=== PATIENT | female | born 1965 | race Caucasian/White ===

== ENCOUNTER 2017-06-09 11:15 | Emergency (ER) | payer SELFPAY ==
[2017-06-09 11:46] LABS: ADD MAN DIFF? NO
[2017-06-09 11:51] LABS: BASO # 0.1 x10^3/uL (0.0-0.2); BASO % 1 % (0-3); EOS # 0.2 x10^3/uL (0.0-0.7); EOS % 2 % (0-3); HEMATOCRIT 46.6 % (36.0-47.0); HEMOGLOBIN 15.3 g/dL (12.0-15.5); LYMPH # 2.5 x10^3/uL (1.0-4.8); LYMPH % 25 % (24-48); MEAN CORPUSCULAR HEMOGLOBIN 29 pg (25-35); MEAN CORPUSCULAR HGB CONC 33 g/dL (31-37); MEAN CORPUSCULAR VOLUME 87 fL (79-100); MONO # 0.8 x10^3/uL (0.0-1.1); MONO % 8 % (0-9); NEUT # 6.2 x10^3uL (1.8-7.7); NEUT % 64 % (31-73); PLATELET COUNT 286 x10^3/uL (140-400); RED BLOOD COUNT 5.36 x10^6/uL (3.50-5.40); RED CELL DISTRIBUTION WIDTH 14.4 % (11.5-14.5); WHITE BLOOD COUNT 9.7 x10^3/uL (4.0-11.0)
[2017-06-09] MEDS: IV NORMAL SALINE 1000ML BAG 1,000 ML IV (11:51)
[2017-06-09] MEDS: METOCLOPRAMIDE HCL 10 MG/2 ML VIAL. IV (11:52)
[2017-06-09] MEDS: DEXAMETHASONE SOD PHOS 4 MG/ML VIAL IV (11:54)
[2017-06-09] MEDS: diphenhydrAMINE 50 MG/ML VIAL IVP (11:54)
[2017-06-09] MEDS: MORPHINE SULFATE 4 MG/ML DISP.SYRIN. IV (11:57)
[2017-06-09 11:59] LABS: ANION GAP 10 (6-14); BLOOD UREA NITROGEN 15 mg/dL (7-20); BUN/CREATININE RATIO 19 (6-20); CALCIUM 9.2 mg/dL (8.5-10.1); CARBON DIOXIDE 27 mmol/L (21-32); CHLORIDE 103 mmol/L (98-107); CREATININE 0.8 mg/dL (0.6-1.0); GFR 75.3; GLUCOSE 143 mg/dL (70-99); POTASSIUM 4.1 mmol/L (3.5-5.1); SODIUM 140 mmol/L (136-145)
[2017-06-09 12:03] LABS: ALBUMIN 3.7 g/dL (3.4-5.0); ALBUMIN/GLOBULIN RATIO 0.9 (1.0-1.7); ALK PHOS 112 U/L (46-116); ALT (SGPT) 33 U/L (14-59); AST (SGOT) 16 U/L (15-37); TOTAL BILIRUBIN 0.2 mg/dL (0.2-1.0); TOTAL PROTEIN 7.7 g/dL (6.4-8.2)
[2017-06-09 13:26] LABS: BILIRUBIN,URINE NEGATIVE (NEG); CLARITY,URINE CLEAR; COLOR,URINE YELLOW; GLUCOSE,URINE NEGATIVE (NEG); NITRITE,URINE NEGATIVE (NEG); PH,URINE 5.5; PROTEIN,URINE NEGATIVE (NEG-TRACE); UROBILINOGEN,URINE 0.2 mg/dL (0.2 mg/dL)
[2017-06-09 13:34] LABS: BACTERIA,URINE FEW /HPF (0-FEW); RBC,URINE 0 /HPF (0-2); SQUAMOUS EPITHELIAL CELL,UR MOD /LPF
== END 2017-06-09 14:22 | disposition home or self-care (01) ==
LOC: ER 11:15
DX: G43.909 Migraine, unspecified, not intractable, without status migrainosus (principal); Z88.0 Allergy status to penicillin
CPT/HCPCS: 36415; 80053; 81001; 85025; 96361; 96374; 96375; 99285-25; J1100; J1200; J2270; J2765; J7030

== ENCOUNTER 2019-08-06 13:12 | Inpatient (IN) | payer MEDICAID ==
[~2019-08-06] VITALS: Ht 167.6 cm; Wt 122.0 kg
[~2019-08-06 13:12] MED LIST: BUTA1CAP57 PO
[2019-08-06] MEDS ORDERED: ONDANSETRON PF 4 MG/2 ML VIAL. IVP ONE (13:45)
[2019-08-06] MEDS ORDERED: IV NORMAL SALINE 1000ML BAG 1,000 ML IV ONE (13:45)
[2019-08-06] MEDS ORDERED: MORPHINE SULFATE 4 MG/ML VIAL. IV ONE (13:45)
[2019-08-06 14:05] LABS: BASO # 0.1 x10^3/uL (0.0-0.2); BASO % 1 % (0-3); EOS # 0.1 x10^3/uL (0.0-0.7); EOS % 1 % (0-3); HEMATOCRIT 45.6 % (36.0-47.0); HEMOGLOBIN 15.5 g/dL (12.0-15.5); LYMPH % 15 % (24-48); MEAN CORPUSCULAR HEMOGLOBIN 28 pg (25-35); MEAN CORPUSCULAR HGB CONC 34 g/dL (31-37); MEAN CORPUSCULAR VOLUME 81 fL (79-100); MONO # 1.2 x10^3/uL (0.0-1.1); MONO % 9 % (0-9); NEUT # 9.9 x10^3/uL (1.8-7.7); NEUT % 74 % (31-73); PLATELET COUNT 332 x10^3/uL (140-400); RED CELL DISTRIBUTION WIDTH 15.1 % (11.5-14.5); WHITE BLOOD COUNT 13.4 x10^3/uL (4.0-11.0)
[2019-08-06 14:16] LABS: CALCIUM 9.3 mg/dL (8.5-10.1); CREATININE 0.9 mg/dL (0.6-1.0); GFR 65.2; POTASSIUM 4.2 mmol/L (3.5-5.1)
[2019-08-06 14:21] LABS: ALBUMIN 3.4 g/dL (3.4-5.0); ALBUMIN/GLOBULIN RATIO 0.7 (1.0-1.7); TOTAL BILIRUBIN 0.3 mg/dL (0.2-1.0)
--- NOTE | 2019-08-06 14:47 | RAD ---
ABDOMEN LTD History: Reason: RUQ pain / Spl. Instructions: / History: Comparison: None. Technique: Transabdominal ultrasound images are obtained of the right upper quadrant. Findings: Visualized pancreas is unremarkable. Liver is increased in echogenicity. Right hepatic lobe measures 15.2 cm. Portal flow is hepatopedal. Cholelithiasis. Positive sonographic Zhong sign. No gallbladder wall thickening or pericholecystic fluid. Common bile duct measures 4 mm in diameter. The right kidney measures 10.2 x 6.3 x 4.8 cm. No hydronephrosis. Visualized portions of the aorta and IVC have normal caliber. IMPRESSION: 1. Cholelithiasis with positive sonographic Zhong sign. HIDA scan can further evaluate for gallbladder function. 2. Increased hepatic echotexture, may indicate steatosis. Electronically signed by: Helder Friend DO (08/06/2019 2:44 PM) [id number]
--- NOTE | 2019-08-06 14:55 | PHYS DOC ---
Past Medical History Past Medical History: Hypertension, Migraines Past Surgical History: Appendectomy, , Tonsillectomy Smoking Status: Current Every Day Smoker Alcohol Use: None Drug Use: None General Adult EDM: Chief Complaint: ABDOMINAL PAIN HPI: HPI: Patient is a 54 year old female presenting to the ED with a chief complaint of right upper quadrant tenderness. Patient states that she vomited this morning when she tried to eat a discrete sandwich. Patient states that the pain is been on and off for the last 4 days. Patient states that she does not have an appetite and is nauseated whenever she tries to eat anything. Patient states that the pain caused her to sweat this morning. Patient describes the pain as aching and is worse with eating food. Review of Systems: Review of Systems: Constitutional: Denies fever or chills. [] Eyes: Denies change in visual acuity. [] HENT: Denies nasal congestion or sore throat. [] Respiratory: Denies cough or shortness of breath. [] Cardiovascular: Denies chest pain or edema. [] GI: Complains of right upper quadrant tenderness with nausea and vomiting. : Denies dysuria. [] Neurologic: Denies headache, focal weakness or sensory changes. [] Heart Score: Risk Factors: Risk Factors: DM, Current or recent (<one month) smoker, HTN, HLP, family history of CAD, obesity. Risk Scores: Score 0 - 3: 2.5% MACE over next 6 weeks - Discharge Home Score 4 - 6: 20.3% MACE over next 6 weeks - Admit for Clinical Observation Score 7 - 10: 72.7% MACE over next 6 weeks - Early Invasive Strategies Current Medications: Current Medications Medications (Trade) Dose Ordered Sig/[facility] Start Time Stop Time Status Last Admin Dose Admin Morphine Sulfate (Morphine Sulfate) 4 mg 1X ONCE 08/06/19 13:45 08/06/19 13:46 DC 08/06/19 14:20 4 MG Ondansetron HCl (Zofran) 4 mg 1X ONCE 08/06/19 13:45 08/06/19 13:46 DC 08/06/19 14:19 4 MG Sodium Chloride 1,000 ml @ 1,000 mls/hr 1X ONCE 08/06/19 13:45 08/06/19 14:44 DC 08/06/19 14:20 1,000 MLS/HR Allergies: Allergies: Allergies Coded Allergies Type Severity Reaction Last Updated Verified Penicillins Allergy Intermediate 06/09/17 Yes Physical Exam: PE: Constitutional: Well developed, well nourished, patient has diaphoresis HENT: Normocephalic, atraumatic Eyes: EOMI Neck: Normal range of motion, Supple Cardiovascular:Heart rate regular rhythm Lungs & Thorax: Bilateral breath sounds clear to auscultation [] Abdomen: Right upper quadrant tenderness with positive Zhong sign Extremities: No tenderness, ROM intact Neurologic: Alert and oriented X 3 Current Patient Data: Labs: Laboratory Tests Test 08/06/19 14:00 White Blood Count 13.4 x10^3/uL (4.0-11.0) H Red Blood Count 5.60 x10^6/uL (3.50-5.40) H Hemoglobin 15.5 g/dL (12.0-15.5) Hematocrit 45.6 % (36.0-47.0) Mean Corpuscular Volume 81 fL (79-100) Mean Corpuscular Hemoglobin 28 pg (25-35) Mean Corpuscular Hemoglobin Concent 34 g/dL (31-37) Red Cell Distribution Width 15.1 % (11.5-14.5) H Platelet Count 332 x10^3/uL (140-400) Neutrophils (%) (Auto) 74 % (31-73) H Lymphocytes (%) (Auto) 15 % (24-48) L Monocytes (%) (Auto) 9 % (0-9) Eosinophils (%) (Auto) 1 % (0-3) Basophils (%) (Auto) 1 % (0-3) Neutrophils # (Auto) 9.9 x10^3/uL (1.8-7.7) H Lymphocytes # (Auto) 2.0 x10^3/uL (1.0-4.8) Monocytes # (Auto) 1.2 x10^3/uL (0.0-1.1) H Eosinophils # (Auto) 0.1 x10^3/uL (0.0-0.7) Basophils # (Auto) 0.1 x10^3/uL (0.0-0.2) Sodium Level 139 mmol/L (136-145) Potassium Level 4.2 mmol/L (3.5-5.1) Chloride Level 101 mmol/L (98-107) Carbon Dioxide Level 27 mmol/L (21-32) Anion Gap 11 (6-14) Blood Urea Nitrogen 10 mg/dL (7-20) Creatinine 0.9 mg/dL (0.6-1.0) Estimated GFR (Cockcroft-Gault) 65.2 BUN/Creatinine Ratio 11 (6-20) Glucose Level 125 mg/dL (70-99) H Calcium Level 9.3 mg/dL (8.5-10.1) Total Bilirubin 0.3 mg/dL (0.2-1.0) Aspartate Amino Transferase (AST) 33 U/L (15-37) Alanine Aminotransferase (ALT) 61 U/L (14-59) H Alkaline Phosphatase 102 U/L (46-116) Troponin I Quantitative < 0.017 ng/mL (0.000-0.055) Total Protein 8.0 g/dL (6.4-8.2) Albumin 3.4 g/dL (3.4-5.0) Albumin/Globulin Ratio 0.7 (1.0-1.7) L Lipase 108 U/L (73-393) Laboratory Tests 08/06/19 14:00 Laboratory Tests 08/06/19 14:00 Vital Signs: Vital Signs Date Time Temp Pulse Resp B/P (MAP) Pulse Ox O2 Delivery O2 Flow Rate FiO2 08/06/19 14:20 20 93 Room Air 08/06/19 13:43 97.7 120 175/81 (112) 97.7 EKG: EKG: [EKG interpretation: 13: 57 on 08/06/2019 HR: 99 Sinus rhythm Regular intervals Normal axis Nonspecific ST changes ] Radiology/Procedures: Radiology/Procedures: [] Impression: US IMPRESSION: 1. Cholelithiasis with positive sonographic Zhong sign. HIDA scan can further evaluate for gallbladder function. 2. Increased hepatic echotexture, may indicate steatosis. Course & Med Decision Making: Course & Med Decision Making Pertinent Labs and Imaging studies reviewed. (See chart for details) Labs are within normal limits. Ultrasound of the right upper quadrant shows that patient has gallstones. Patient states that the pain is intractable and that she is not able to eat anything. Patient would like the gallbladder to be removed. Patient has required IV pain medication in the ER. We will contact hospitalist service for admission. Discussed case with Dr. Fishman who accepts admission. Agusto Disclaimer: Agusto Disclaimer: This electronic medical record was generated, in whole or in part, using a voice recognition dictation system. Departure Departure Impression: Primary Impression: Cholelithiasis Disposition: ADMITTED INPATIENT Admitting Physician: BENITEZ Condition: IMPROVED Referrals: NO PCP (PCP) SHAUN VIGIL DO August 06, 2019 14:55
[2019-08-06] MEDS ORDERED: FAMOTIDINE 20 MG/2 ML VIAL IVP ONE (15:45)
[2019-08-06 15:50] VITALS: BP 136/64
--- NOTE | 2019-08-06 15:51 | PDOC1 ---
History and Physical Date of Admission Date of Admission DATE: 08/06/19 TIME: 15:47 Identification/Chief Complaint Chief Complaint Abdominal pain History of Present Illness History of Present Illness Ms Ibarra is a 54yo F w/ PMHx HTN, smoker who presents with 5-day history of abdominal pain and nausea. 3 days ago she thought it was improving, but then began having very yellowish diarrhea which she has had 3-5 times per day yesterday she was able to eat mac & cheese but the pain came back and has not gone away since. This morning she tried to eat a sausage biscuit and notes she is in the worst pain she is ever had in her life. 12/15, she is tearful. No chest pain or shortness of breath. No dysuria no fever chills. On further ROS she notes she is a smoker. Is only quit twice once she chose to another time when she was incarcerated for 3 years. She has not been able to smoke a cigarette all week long. Has lost a desire. EKG - HR: 99, NSR, normal axis and intervals with lateral nonspecific ST changes. No STEMI Right upper quadrant ultrasound positive for sonographic Zhong sign no gallbladder wall thickening. Labs revealed WBC 13.4 Hb 15.5, platelets 332, NA 139, K4.2, BUN 10, CR 0.9, glucose 125, AST 33, ALT 61, lipase 108. Past Medical History Cardiovascular: HTN CENTRAL NERVOUS SYSTEM: Migraine Past Surgical History Past Surgical History: Appendectomy, , Tonsillectomy Family History Family History: Hypertension Social History Smoke: 1 pack per day ALCOHOL: none Drugs: None Current Problem List Problem List Problems Medical Problems: (1) Cholelithiasis Status: Acute Current Medications Current Medications Current Medications Sodium Chloride 1,000 ml @ 1,000 mls/hr 1X ONCE IV Last administered on 08/06/19at 14:20; Start 08/06/19 at 13:45; Stop 08/06/19 at 14:44; Status DC Morphine Sulfate (Morphine Sulfate) 4 mg 1X ONCE IV Last administered on 08/06/19at 14:20; Start 08/06/19 at 13:45; Stop 08/06/19 at 13:46; Status DC Ondansetron HCl (Zofran) 4 mg 1X ONCE IVP Last administered on 08/06/19at 14:19; Start 08/06/19 at 13:45; Stop 08/06/19 at 13:46; Status DC Famotidine (Pepcid Vial) 20 mg 1X ONCE IVP ; Start 08/06/19 at 15:45; Stop 08/06/19 at 15:46; Status DC Active Scripts Active Fvyutl-Palheleb-Xksr 50-300-40 (Butalb/Acetaminophen/Caffeine) 1 Each Capsule 1 Each PO Q6HRS Allergies Allergies: Coded Allergies: Penicillins (Verified Allergy, Intermediate, 06/09/17) ROS General: YES: Fatigue, Malaise; No: Chills, Night Sweats, Appetite, Other PSYCHOLOGICAL ROS: No: Anxiety, Behavioral Disorder, Concentration difficultie, Decreased libido, Depression, Disorientation, Hallucinations, Hostility, Irritablity, Memory difficulties, Mood Swings, Obsessive thoughts, Physical abuse, Sexual abuse, Sleep disturbances, Suicidal ideation, Other Eyes: No Blurry vision, No Decreased vision, No Double vision, No Dry eyes, No Excessive tearing, No Eye Pain, No Itchy Eyes, No Loss of vision, No Photophobia, No Scotomata, No Uses contacts, No Uses glasses, No Other HEENT: No: Heacaches, Visual Changes, Hearing change, Nasal congestion, Nasal discharge, Oral lesions, Sinus pain, Sore Throat, Epistaxis, Sneezing, Snoring, Tinnitus, Vertigo, Vocal changes, Other ALLERGY AND IMMUNOLOGY: No: Hives, Insect Bite Sensitivity, Itchy/Watery Eyes, Nasal Congestion, Post Nasal Drip, Seasonal Allergies, Other Hematological and Lymphatic: No: Bleeding Problems, Blood Clots, Blood Transfusions, Brusing, Night Sweats, Pallor, Swollen Lymph Nodes, Other ENDOCRINE: No: Breast Changes, Galactorrhea, Hair Pattern Changes, Hot Flashes, Malaise/lethargy, Mood Swings, Palpitations, Polydipsia/polyuria, Skin Changes, Temperature Intolerance, Unexpected Weight Changes, Other Breast: No New/Changing Breast Lumps, No Nipple changes, No Nipple discharge, No Other Respiratory: No: Cough, Hemoptysis, Orthopnea, Pleuritic Pain, Shortness of breath, SOB with excertion, Sputum Changes, Stridor, Tachypnea, Wheezing, Other Cardiovascular: No Chest Pain, No Palpitations, No Orthopnea, No Paroxysmal Noc . Dyspnea, No Edema, No Lt Headedness, No Other Gastrointestinal: Yes Nausea, Yes Abdominal Pain, Yes Diarrhea; No Vomiting, No Constipation, No Melena, No Hematochezia, No Other Genitourinary: No Dysuria, No Frequency, No Incontinence, No Hematuria, No Retention, No Discharge, No Urgency, No Pain, No Flank Pain, No Other, No , No , No , No , No , No , No Musculoskeletal: No Gait Disturbance, No Joint Pain, No Joint Stiffness, No Joint Swelling, No Muscle Pain, No Muscular Weakness, No Pain In:, No Swelling In:, No Other Neurological: No Behavorial Changes, No Bowel/Bladder ControlChng, No Confusion, No Dizziness, No Gait Disturbance, No Headaches, No Impaired Coord/balance, No Memory Loss, No Numbness/Tingling, No Seizures, No Speech Problems, No Tremors, No Visual Changes, No Weakness, No Other Skin: No Dry Skin, No Eczema, No Hair Changes, No Lumps, No Mole Changes, No Mottling, No Nail Changes, No Pruritus, No Rash, No Skin Lesion Changes, No Other, No Acne Physical Exam General: Alert, Oriented X3, Cooperative, moderate distress HEENT: Atraumatic, PERRLA, EOMI, Mucous membr. moist/pink Lungs: Clear to auscultation, Normal air movement Heart: S1S2, RRR, no thrills, no rubs, no gallops, no murmurs Abdomen: Normal bowel sounds, Soft, No hepatosplenomegaly, No masses, Other (RUQ tender) Rectal Exam: not examined Extremities: No clubbing, No cyanosis, No edema, Normal pulses, No tenderness/swelling Skin: No rashes, No breakdown, No significant lesion Neuro: Normal gait, Normal speech, Strength at 5/5 X4 ext, Normal tone, Sensation intact, Cranial nerves 3-12 NL, Reflexes 2+ Psych/Mental Status: Mental status NL, Mood NL Vitals Vitals Vital Signs Date Time Temp Pulse Resp B/P (MAP) Pulse Ox O2 Delivery O2 Flow Rate FiO2 08/06/19 15:30 78 18 200/82 (121) 94 Room Air 08/06/19 13:43 97.7 97.7 Labs Labs Laboratory Tests Test 08/06/19 14:00 White Blood Count 13.4 x10^3/uL (4.0-11.0) Red Blood Count 5.60 x10^6/uL (3.50-5.40) Hemoglobin 15.5 g/dL (12.0-15.5) Hematocrit 45.6 % (36.0-47.0) Mean Corpuscular Volume 81 fL (79-100) Mean Corpuscular Hemoglobin 28 pg (25-35) Mean Corpuscular Hemoglobin Concent 34 g/dL (31-37) Red Cell Distribution Width 15.1 % (11.5-14.5) Platelet Count 332 x10^3/uL (140-400) Neutrophils (%) (Auto) 74 % (31-73) Lymphocytes (%) (Auto) 15 % (24-48) Monocytes (%) (Auto) 9 % (0-9) Eosinophils (%) (Auto) 1 % (0-3) Basophils (%) (Auto) 1 % (0-3) Neutrophils # (Auto) 9.9 x10^3/uL (1.8-7.7) Lymphocytes # (Auto) 2.0 x10^3/uL (1.0-4.8) Monocytes # (Auto) 1.2 x10^3/uL (0.0-1.1) Eosinophils # (Auto) 0.1 x10^3/uL (0.0-0.7) Basophils # (Auto) 0.1 x10^3/uL (0.0-0.2) Sodium Level 139 mmol/L (136-145) Potassium Level 4.2 mmol/L (3.5-5.1) Chloride Level 101 mmol/L (98-107) Carbon Dioxide Level 27 mmol/L (21-32) Anion Gap 11 (6-14) Blood Urea Nitrogen 10 mg/dL (7-20) Creatinine 0.9 mg/dL (0.6-1.0) Estimated GFR (Cockcroft-Gault) 65.2 BUN/Creatinine Ratio 11 (6-20) Glucose Level 125 mg/dL (70-99) Calcium Level 9.3 mg/dL (8.5-10.1) Total Bilirubin 0.3 mg/dL (0.2-1.0) Aspartate Amino Transf (AST/SGOT) 33 U/L (15-37) Alanine Aminotransferase (ALT/SGPT) 61 U/L (14-59) Alkaline Phosphatase 102 U/L (46-116) Troponin I Quantitative < 0.017 ng/mL (0.000-0.055) Total Protein 8.0 g/dL (6.4-8.2) Albumin 3.4 g/dL (3.4-5.0) Albumin/Globulin Ratio 0.7 (1.0-1.7) Lipase 108 U/L (73-393) Laboratory Tests Test 08/06/19 14:00 White Blood Count 13.4 x10^3/uL (4.0-11.0) Red Blood Count 5.60 x10^6/uL (3.50-5.40) Hemoglobin 15.5 g/dL (12.0-15.5) Hematocrit 45.6 % (36.0-47.0) Mean Corpuscular Volume 81 fL (79-100) Mean Corpuscular Hemoglobin 28 pg (25-35) Mean Corpuscular Hemoglobin Concent 34 g/dL (31-37) Red Cell Distribution Width 15.1 % (11.5-14.5) Platelet Count 332 x10^3/uL (140-400) Neutrophils (%) (Auto) 74 % (31-73) Lymphocytes (%) (Auto) 15 % (24-48) Monocytes (%) (Auto) 9 % (0-9) Eosinophils (%) (Auto) 1 % (0-3) Basophils (%) (Auto) 1 % (0-3) Neutrophils # (Auto) 9.9 x10^3/uL (1.8-7.7) Lymphocytes # (Auto) 2.0 x10^3/uL (1.0-4.8) Monocytes # (Auto) 1.2 x10^3/uL (0.0-1.1) Eosinophils # (Auto) 0.1 x10^3/uL (0.0-0.7) Basophils # (Auto) 0.1 x10^3/uL (0.0-0.2) Sodium Level 139 mmol/L (136-145) Potassium Level 4.2 mmol/L (3.5-5.1) Chloride Level 101 mmol/L (98-107) Carbon Dioxide Level 27 mmol/L (21-32) Anion Gap 11 (6-14) Blood Urea Nitrogen 10 mg/dL (7-20) Creatinine 0.9 mg/dL (0.6-1.0) Estimated GFR (Cockcroft-Gault) 65.2 BUN/Creatinine Ratio 11 (6-20) Glucose Level 125 mg/dL (70-99) Calcium Level 9.3 mg/dL (8.5-10.1) Total Bilirubin 0.3 mg/dL (0.2-1.0) Aspartate Amino Transf (AST/SGOT) 33 U/L (15-37) Alanine Aminotransferase (ALT/SGPT) 61 U/L (14-59) Alkaline Phosphatase 102 U/L (46-116) Troponin I Quantitative < 0.017 ng/mL (0.000-0.055) Total Protein 8.0 g/dL (6.4-8.2) Albumin 3.4 g/dL (3.4-5.0) Albumin/Globulin Ratio 0.7 (1.0-1.7) Lipase 108 U/L (73-393) Images Images RUQ US: Visualized pancreas is unremarkable. Liver is increased in echogenicity. Right hepatic lobe measures 15.2 cm. Portal flow is hepatopedal. Cholelithiasis. Positive sonographic Hzong sign. No gallbladder wall thickening or pericholecystic fluid. Common bile duct measures 4 mm in diameter. The right kidney measures 10.2 x 6.3 x 4.8 cm. No hydronephrosis. Visualized portions of the aorta and IVC have normal caliber. IMPRESSION: 1. Cholelithiasis with positive sonographic Zhong sign. HIDA scan can further evaluate for gallbladder function. 2. Increased hepatic echotexture, may indicate steatosis. VTE Prophylaxis Ordered VTE Prophylaxis Devices: No VTE Pharmacological Prophylaxi: Yes Assessment/Plan Assessment/Plan A/P: Abdominal pain - likely from symptomatic gallbladder disease, acute. No cholecystitis. Will keep NPO, HIDA scan. Consult general surgery Nausea - IV antiemetics Diarrhea - will culture stool, check for community acquired. c. diff, shiga toxin. Consult GI Leukocytosis - likely reactive, does not appear septic. Will trend WBCs Hyperglycemia - likely stress reaction, no hx of DM2, will check A1c, TSH Transaminitis - check TSH, likely from GI symptoms. trend HTN - does not recall meds. Will reconcile. HTN urgency, will place on hydralazine IV prn Smoker - Counseled on cessation. not interested in nicotine patch currently FEN - NPO PPX - lovenox FULL CODE Dispo - inpatient 2 midnights. ISABEL CRISTOBAL MD August 06, 2019 15:51
[2019-08-06] MEDS ORDERED: ZOLPIDEM 5 MG TABLET. PO PRN (16:00)
[2019-08-06] MEDS ORDERED: ONDANSETRON PF 4 MG/2 ML VIAL. IV PRN (16:00)
[2019-08-06] MEDS ORDERED: guaiFENesin ORAL 200 MG/10 ML LIQUID. PO PRN (16:00)
[2019-08-06] MEDS ORDERED: ACETAMINOPHEN 650 MG SUPP.RECT. PR PRN (16:00)
[2019-08-06] MEDS: ENOXAPARIN 40 MG/0.4 ML SYRINGE. SQ SCH (16:00)
[2019-08-06] MEDS ORDERED: hydrALAZINE 20 MG/ML VIAL. IVP PRN (16:00)
[2019-08-06] MEDS ORDERED: ALBUTEROL SULFATE 2.5 MG/3 ML NEBU. NEB PRN (16:00)
--- NOTE | 2019-08-06 16:06 | NUR ---
Consult called to Dr. Mar.
[2019-08-06] MEDS: KETOROLAC 30 MG/ML VIAL. IVP PRN (16:21)
[2019-08-06] MEDS: fentaNYL PF VIAL 100 MCG/2 ML VIAL IVP PRN ×2 (16:21→18:20)
[2019-08-06 19:00] VITALS: BP 119/63
[2019-08-06 23:00] VITALS: BP 110/70
[2019-08-07] VITALS (12 sets, daily range): BP systolic 113–171; BP diastolic 50–92
[2019-08-07] MEDS: KETOROLAC 30 MG/ML VIAL. IVP PRN ×3 (00:11→22:14)
[2019-08-07 06:36] LABS: BILIRUBIN,URINE SMALL (NEG); CLARITY,URINE CLEAR; COLOR,URINE AMBER; NITRITE,URINE NEGATIVE (NEG); PH,URINE 5.5 (<5.0-8.0); PROTEIN,URINE NEGATIVE (NEG-TRACE)
[2019-08-07 06:46] LABS: U PREG PATIENT NEGATIVE (NEG)
[2019-08-07 06:47] LABS: BASO # 0.1 x10^3/uL (0.0-0.2); BASO % 1 % (0-3); EOS # 0.2 x10^3/uL (0.0-0.7); EOS % 2 % (0-3); HEMATOCRIT 42.8 % (36.0-47.0); HEMOGLOBIN 14.3 g/dL (12.0-15.5); LYMPH # 2.3 x10^3/uL (1.0-4.8); LYMPH % 29 % (24-48); MEAN CORPUSCULAR HEMOGLOBIN 28 pg (25-35); MEAN CORPUSCULAR HGB CONC 33 g/dL (31-37); MEAN CORPUSCULAR VOLUME 83 fL (79-100); MONO # 0.9 x10^3/uL (0.0-1.1); MONO % 11 % (0-9); NEUT # 4.5 x10^3/uL (1.8-7.7); NEUT % 57 % (31-73); PLATELET COUNT 301 x10^3/uL (140-400); RED BLOOD COUNT 5.17 x10^6/uL (3.50-5.40); RED CELL DISTRIBUTION WIDTH 14.9 % (11.5-14.5); WHITE BLOOD COUNT 7.9 x10^3/uL (4.0-11.0)
[2019-08-07 06:50] LABS: BACTERIA,URINE MODERATE /HPF (0-FEW); RBC,URINE 0 /HPF (0-2); SQUAMOUS EPITHELIAL CELL,UR MANY /LPF
[2019-08-07 07:06] LABS: PROTHROMBIN TIME PATIENT 14.9 SEC (11.7-14.0)
[2019-08-07 07:09] LABS: ALBUMIN 2.8 g/dL (3.4-5.0); ALBUMIN/GLOBULIN RATIO 0.7 (1.0-1.7); CALCIUM 8.8 mg/dL (8.5-10.1); CREATININE 0.8 mg/dL (0.6-1.0); GFR 74.7; POTASSIUM 4.1 mmol/L (3.5-5.1); TOTAL BILIRUBIN 0.5 mg/dL (0.2-1.0)
--- NOTE | 2019-08-07 07:30 | EKG ---
[facility] [address] [place] [address] Test Date: 2019-08-06 Test Time: 13:57:00 Pat Name: FABIOLA SEVERINO Department: Room: [facility] Gender: F [place] Master: : 1965 Requested By: SHAUN VIGIL Order Number: [id number] Reading MD: Anup Aldana MD Measurements Intervals Nelson Rate: 99 P: 66 GA: 152 QRS: 30 QRSD: 70 T: 68 QT: 310 QTc: 403 Interpretive Statements SINUS RHYTHM Electronically Signed On 08-07-2019 12:23:59 CDT by Anup Aldana MD
[2019-08-07] MEDS ORDERED: MORPHINE SULFATE 4 MG/ML VIAL. ONE (08:26)
[2019-08-07] MEDS ORDERED: MORPHINE SULFATE 4 MG/ML VIAL. IV ONE (09:00)
--- NOTE | 2019-08-07 09:43 | RAD ---
NM HEPATOBILIARY SCAN W PHARM History: Right upper quadrant pain. Comparison: Ultrasound August 06, 2019 Technique: 5.5 mCi technetium 99m Choletec was administered intravenously and spot views were obtained on the gamma camera for a Nuclear Medicine hepatobiliary scan. Findings: There is rapid uptake of activity from the blood pool and concentration in the liver. No definite activity is seen within the gallbladder after 70 minutes. Activity seen within the small bowel and 20 minutes. 4 mg of morphine was administered. Faint activity is seen within the region of the gallbladder is identified on lateral view 100 minutes. Impression: 1. No definite activity seen within the gallbladder after initial 60 minutes with potential faint activity seen on delayed imaging after morphine administration at 100 minutes. Findings may represent acute cholecystitis or at least chronic cholecystitis. Electronically signed by: Helder Friend DO (08/07/2019 9:40 AM) [id number]
--- NOTE | 2019-08-07 10:12 | PDOC2 ---
CONSULT Date of Consult Date of Consult DATE: 08/07/19 TIME: 10:09 Reason for Consult Reason for Consult: Abdominal pain nausea vomiting Referring Physician Referring Physician: Sravanthi Identification/Chief Complaint Chief Complaint Abdominal pain Source Source: Patient History of Present Illness Reason for Visit: 54-year-old female who is admitted through the emergency department with complaints of right upper quadrant abdominal pain nausea vomiting proximately [address] scan ultrasound done in the emergency department shows signs consistent with acute cholecystitis with gallstones mildly thickened gallbladder wall. Liver enzymes within normal limits. She states she is had several episodes similar to this in the past but not nearly as severe Past Medical History Cardiovascular: HTN CENTRAL NERVOUS SYSTEM: Migraine Past Surgical History Past Surgical History: Appendectomy, , Tonsillectomy Family History Family History: Hypertension Social History 1 pack per day ALCOHOL: none Drugs: None Current Problem List Problem List Problems Medical Problems: (1) Cholelithiasis Status: Acute Current Medications Current Medications Current Medications Sodium Chloride 1,000 ml @ 1,000 mls/hr 1X ONCE IV Last administered on 08/06/19at 14:20; Start 08/06/19 at 13:45; Stop 08/06/19 at 14:44; Status DC Morphine Sulfate (Morphine Sulfate) 4 mg 1X ONCE IV Last administered on 08/06/19at 14:20; Start 08/06/19 at 13:45; Stop 08/06/19 at 13:46; Status DC Ondansetron HCl (Zofran) 4 mg 1X ONCE IVP Last administered on 08/06/19at 14:19; Start 08/06/19 at 13:45; Stop 08/06/19 at 13:46; Status DC Famotidine (Pepcid Vial) 20 mg 1X ONCE IVP Last administered on 08/06/19at 16:21; Start 08/06/19 at 15:45; Stop 08/06/19 at 15:46; Status DC Ondansetron HCl (Zofran) 4 mg PRN Q4HRS PRN IV NAUSEA/VOMITING; Start 08/06/19 at 16:00 Zolpidem Tartrate (Ambien) 5 mg PRN QHS PRN PO INSOMNIA; Start 08/06/19 at 16:00 Acetaminophen (Tylenol Supp) 650 mg PRN Q4HRS PRN WA TEMP OVER 100.4F OR MILD PAIN; Start 08/06/19 at 16:00 Albuterol Sulfate (Ventolin Neb Soln) 2.5 mg PRN Q4HRS PRN NEB SHORTNESS OF BREATH; Start 08/06/19 at 16:00 Guaifenesin (Robitussin) 200 mg PRN Q4HRS PRN PO COUGH; Start 08/06/19 at 16:00 Enoxaparin Sodium (Lovenox 40mg Syringe) 40 mg Q24H SQ ; Start 08/06/19 at 16:00 Fentanyl Citrate (Fentanyl 2ml Vial) 25 mcg PRN Q2HR PRN IVP PAIN Last admini stered on 08/06/19at 18:20; Start 08/06/19 at 16:00 Ketorolac Tromethamine (Toradol 30mg Vial) 30 mg PRN Q6HRS PRN IVP PAIN Last administered on 08/07/19at 00:11; Start 08/06/19 at 16:00; Stop 08/11/19 at 15:59 Hydralazine HCl (Apresoline Inj) 10 mg PRN Q4HRS PRN IVP ELEVATED BP, SEE COMMENTS; Start 08/06/19 at 16:00 Morphine Sulfate (Morphine Sulfate) 4 mg 1X ONCE IV ; Start 08/07/19 at 09:00; Stop 08/07/19 at 09:01; Status DC Morphine Sulfate (Morphine Sulfate) 4 mg STK-MED ONCE .ROUTE ; Start 08/07/19 at 08:26; Stop 08/07/19 at 08:26; Status DC Active Scripts Active Ialjiu-[id number]-[id number] 50-300-40 (Butalb/Acetaminophen/Caffeine) 1 Each Capsule 1 Each PO Q6HRS Allergies Allergies: Coded Allergies: Penicillins (Verified Allergy, Intermediate, 06/09/17) ROS Gastrointestinal: Yes Nausea, Yes Vomiting, Yes Abdominal Pain Physical Exam General: Alert, Oriented X3, Cooperative, mild distress HEENT: Atraumatic Lungs: Clear to auscultation, Normal air movement Heart: Regular rate, No murmurs Abdomen: Normal bowel sounds, Soft, Other (Tender to palpation right upper quadrant) Extremities: No edema Skin: No significant lesion Neuro: Normal speech Psych/Mental Status: Mental status NL Vitals VITALS Vital Signs Date Time Temp Pulse Resp B/P (MAP) Pulse Ox O2 Delivery O2 Flow Rate FiO2 08/07/19 07:00 98.1 66 17 131/75 (93) 95 Room Air 98.1 08/06/19 15:50 94.0 Labs Labs Laboratory Tests Test 08/06/19 14:00 08/07/19 05:40 08/07/19 05:50 White Blood Count 13.4 x10^3/uL (4.0-11.0) 7.9 x10^3/uL (4.0-11.0) Red Blood Count 5.60 x10^6/uL (3.50-5.40) 5.17 x10^6/uL (3.50-5.40) Hemoglobin 15.5 g/dL (12.0-15.5) 14.3 g/dL (12.0-15.5) Hematocrit 45.6 % (36.0-47.0) 42.8 % (36.0-47.0) Mean Corpuscular Volume 81 fL (79-100) 83 fL (79-100) Mean Corpuscular Hemoglobin 28 pg (25-35) 28 pg (25-35) Mean Corpuscular Hemoglobin Concent 34 g/dL (31-37) 33 g/dL (31-37) Red Cell Distribution Width 15.1 % (11.5-14.5) 14.9 % (11.5-14.5) Platelet Count 332 x10^3/uL (140-400) 301 x10^3/uL (140-400) Neutrophils (%) (Auto) 74 % (31-73) 57 % (31-73) Lymphocytes (%) (Auto) 15 % (24-48) 29 % (24-48) Monocytes (%) (Auto) 9 % (0-9) 11 % (0-9) Eosinophils (%) (Auto) 1 % (0-3) 2 % (0-3) Basophils (%) (Auto) 1 % (0-3) 1 % (0-3) Neutrophils # (Auto) 9.9 x10^3/uL (1.8-7.7) 4.5 x10^3/uL (1.8-7.7) Lymphocytes # (Auto) 2.0 x10^3/uL (1.0-4.8) 2.3 x10^3/uL (1.0-4.8) Monocytes # (Auto) 1.2 x10^3/uL (0.0-1.1) 0.9 x10^3/uL (0.0-1.1) Eosinophils # (Auto) 0.1 x10^3/uL (0.0-0.7) 0.2 x10^3/uL (0.0-0.7) Basophils # (Auto) 0.1 x10^3/uL (0.0-0.2) 0.1 x10^3/uL (0.0-0.2) Sodium Level 139 mmol/L (136-145) 139 mmol/L (136-145) Potassium Level 4.2 mmol/L (3.5-5.1) 4.1 mmol/L (3.5-5.1) Chloride Level 101 mmol/L (98-107) 104 mmol/L (98-107) Carbon Dioxide Level 27 mmol/L (21-32) 28 mmol/L (21-32) Anion Gap 11 (6-14) 7 (6-14) Blood Urea Nitrogen 10 mg/dL (7-20) 12 mg/dL (7-20) Creatinine 0.9 mg/dL (0.6-1.0) 0.8 mg/dL (0.6-1.0) Estimated GFR (Cockcroft-Gault) 65.2 74.7 BUN/Creatinine Ratio 11 (6-20) 15 (6-20) Glucose Level 125 mg/dL (70-99) 110 mg/dL (70-99) Calcium Level 9.3 mg/dL (8.5-10.1) 8.8 mg/dL (8.5-10.1) Total Bilirubin 0.3 mg/dL (0.2-1.0) 0.5 mg/dL (0.2-1.0) Aspartate Amino Transf (AST/SGOT) 33 U/L (15-37) 50 U/L (15-37) Alanine Aminotransferase (ALT/SGPT) 61 U/L (14-59) 85 U/L (14-59) Alkaline Phosphatase 102 U/L (46-116) 101 U/L (46-116) Troponin I Quantitative < 0.017 ng/mL (0.000-0.055) Total Protein 8.0 g/dL (6.4-8.2) 7.0 g/dL (6.4-8.2) Albumin 3.4 g/dL (3.4-5.0) 2.8 g/dL (3.4-5.0) Albumin/Globulin Ratio 0.7 (1.0-1.7) 0.7 (1.0-1.7) Lipase 108 U/L (73-393) Urine Collection Type Unknown Urine Color Irina Urine Clarity Clear Urine pH 5.5 (<5.0-8.0) Urine Specific [place] >=1.030 (1.000-1.030) Urine Protein Negative mg/dL (NEG-TRACE) Urine Glucose (UA) Negative mg/dL (NEG) Urine Ketones (Stick) Negative mg/dL (NEG) Urine Blood Negative (NEG) Urine Nitrite Negative (NEG) Urine Bilirubin Small (NEG) Urine Urobilinogen Dipstick 1.0 mg/dL (0.2 mg/dL) Urine Leukocyte Esterase Trace (NEG) Urine RBC 0 /HPF (0-2) Urine WBC 5-10 /HPF (0-4) Urine Squamous Epithelial Cells Many /LPF Urine Bacteria Moderate /HPF (0-FEW) Urine Mucus Marked /LPF Urine Test Negative (NEG) Prothrombin Time 14.9 SEC (11.7-14.0) Prothromb Time International Ratio 1.2 (0.8-1.1) Laboratory Tests Test 08/06/19 14:00 08/07/19 05:40 08/07/19 05:50 White Blood Count 13.4 x10^3/uL (4.0-11.0) 7.9 x10^3/uL (4.0-11.0) Red Blood Count 5.60 x10^6/uL (3.50-5.40) 5.17 x10^6/uL (3.50-5.40) Hemoglobin 15.5 g/dL (12.0-15.5) 14.3 g/dL (12.0-15.5) Hematocrit 45.6 % (36.0-47.0) 42.8 % (36.0-47.0) Mean Corpuscular Volume 81 fL (79-100) 83 fL (79-100) Mean Corpuscular Hemoglobin 28 pg (25-35) 28 pg (25-35) Mean Corpuscular Hemoglobin Concent 34 g/dL (31-37) 33 g/dL (31-37) Red Cell Distribution Width 15.1 % (11.5-14.5) 14.9 % (11.5-14.5) Platelet Count 332 x10^3/uL (140-400) 301 x10^3/uL (140-400) Neutrophils (%) (Auto) 74 % (31-73) 57 % (31-73) Lymphocytes (%) (Auto) 15 % (24-48) 29 % (24-48) Monocytes (%) (Auto) 9 % (0-9) 11 % (0-9) Eosinophils (%) (Auto) 1 % (0-3) 2 % (0-3) Basophils (%) (Auto) 1 % (0-3) 1 % (0-3) Neutrophils # (Auto) 9.9 x10^3/uL (1.8-7.7) 4.5 x10^3/uL (1.8-7.7) Lymphocytes # (Auto) 2.0 x10^3/uL (1.0-4.8) 2.3 x10^3/uL (1.0-4.8) Monocytes # (Auto) 1.2 x10^3/uL (0.0-1.1) 0.9 x10^3/uL (0.0-1.1) Eosinophils # (Auto) 0.1 x10^3/uL (0.0-0.7) 0.2 x10^3/uL (0.0-0.7) Basophils # (Auto) 0.1 x10^3/uL (0.0-0.2) 0.1 x10^3/uL (0.0-0.2) Sodium Level 139 mmol/L (136-145) 139 mmol/L (136-145) Potassium Level 4.2 mmol/L (3.5-5.1) 4.1 mmol/L (3.5-5.1) Chloride Level 101 mmol/L (98-107) 104 mmol/L (98-107) Carbon Dioxide Level 27 mmol/L (21-32) 28 mmol/L (21-32) Anion Gap 11 (6-14) 7 (6-14) Blood Urea Nitrogen 10 mg/dL (7-20) 12 mg/dL (7-20) Creatinine 0.9 mg/dL (0.6-1.0) 0.8 mg/dL (0.6-1.0) Estimated GFR (Cockcroft-Gault) 65.2 74.7 BUN/Creatinine Ratio 11 (6-20) 15 (6-20) Glucose Level 125 mg/dL (70-99) 110 mg/dL (70-99) Calcium Level 9.3 mg/dL (8.5-10.1) 8.8 mg/dL (8.5-10.1) Total Bilirubin 0.3 mg/dL (0.2-1.0) 0.5 mg/dL (0.2-1.0) Aspartate Amino Transf (AST/SGOT) 33 U/L (15-37) 50 U/L (15-37) Alanine Aminotransferase (ALT/SGPT) 61 U/L (14-59) 85 U/L (14-59) Alkaline Phosphatase 102 U/L (46-116) 101 U/L (46-116) Troponin I Quantitative < 0.017 ng/mL (0.000-0.055) Total Protein 8.0 g/dL (6.4-8.2) 7.0 g/dL (6.4-8.2) Albumin 3.4 g/dL (3.4-5.0) 2.8 g/dL (3.4-5.0) Albumin/Globulin Ratio 0.7 (1.0-1.7) 0.7 (1.0-1.7) Lipase 108 U/L (73-393) Urine Collection Type Unknown Urine Color Irina Urine Clarity Clear Urine pH 5.5 (<5.0-8.0) Urine Specific [place] >=1.030 (1.000-1.030) Urine Protein Negative mg/dL (NEG-TRACE) Urine Glucose (UA) Negative mg/dL (NEG) Urine Ketones (Stick) Negative mg/dL (NEG) Urine Blood Negative (NEG) Urine Nitrite Negative (NEG) Urine Bilirubin Small (NEG) Urine Urobilinogen Dipstick 1.0 mg/dL (0.2 mg/dL) Urine Leukocyte Esterase Trace (NEG) Urine RBC 0 /HPF (0-2) Urine WBC 5-10 /HPF (0-4) Urine Squamous Epithelial Cells Many /LPF Urine Bacteria Moderate /HPF (0-FEW) Urine Mucus Marked /LPF Urine Test Negative (NEG) Prothrombin Time 14.9 SEC (11.7-14.0) Prothromb Time International Ratio 1.2 (0.8-1.1) Images Images As in the history of present illness Assessment/Plan Assessment/Plan Acute cholecystitis plan laparoscopic cholecystectomy awaiting COVID testing HAYES SOLIMAN MD Aug 07, 2019 10:12
--- NOTE | 2019-08-07 10:33 | PDOC2 ---
GI CONSULT Reason For Consult: diarrhea, abd pain HPI: HPI: 54 y/o female w/ RUQ pain "like someone is ripping my side off" since last Wednesday. "Steady" but worse with eating - has had water, crackers, and a couple bites of mac 'n cheese and biscuits and gravy. Pain is better with movement. Similar pain but less severe in the past. Typically no issues with diarrhea, but on had a couple stingy yellow stools and then watery stools on Wednesday; however, no stools since then. H/o heartburn - takes an OTC pill daily - whatever her cousin buys. No dysphagia, n/v, constipation, melena, or weight loss. Sees red blood in the toilet occasionally - usually occurs after she gets a tummy ache and has some "juicy loose" stools. No previous EGD or colonoscopy. No GB, liver, pancreas, or PUD history. Cousin no longer takes NSAIDs so she doesn't either. PMH: PMH: HTN, migraines appendectomy, , tonsillectomy FH: Family History: Cancer (sister - lung), CAD, DM Social History: Smoke: <1 pack per day (hasn't smoked in 7 days) ALCOHOL: none Drugs: None ROS: GEN: Denies fevers, chills, sweats HEENT: Denies blurred vision, sore throat CV: Denies chest pain RESP: Denies shortness of air, cough GI: Per HPI : Denies hematuria, dysuria ENDO: Denies weight changes NEURO: Denies confusion, dizziness MSK: Denies weakness, joint pain/swelling SKIN: Denies jaundice, pruritus Vitals: Vitals: Vital Signs Date Time Temp Pulse Resp B/P (MAP) Pulse Ox O2 Delivery O2 Flow Rate FiO2 08/07/19 10:09 Room Air 08/07/19 07:00 98.1 66 17 131/75 (93) 95 98.1 08/06/19 15:50 94.0 Labs: Labs: Laboratory Tests Test 08/06/19 14:00 08/07/19 05:40 08/07/19 05:50 White Blood Count 13.4 x10^3/uL (4.0-11.0) 7.9 x10^3/uL (4.0-11.0) Red Blood Count 5.60 x10^6/uL (3.50-5.40) 5.17 x10^6/uL (3.50-5.40) Hemoglobin 15.5 g/dL (12.0-15.5) 14.3 g/dL (12.0-15.5) Hematocrit 45.6 % (36.0-47.0) 42.8 % (36.0-47.0) Mean Corpuscular Volume 81 fL (79-100) 83 fL (79-100) Mean Corpuscular Hemoglobin 28 pg (25-35) 28 pg (25-35) Mean Corpuscular Hemoglobin Concent 34 g/dL (31-37) 33 g/dL (31-37) Red Cell Distribution Width 15.1 % (11.5-14.5) 14.9 % (11.5-14.5) Platelet Count 332 x10^3/uL (140-400) 301 x10^3/uL (140-400) Neutrophils (%) (Auto) 74 % (31-73) 57 % (31-73) Lymphocytes (%) (Auto) 15 % (24-48) 29 % (24-48) Monocytes (%) (Auto) 9 % (0-9) 11 % (0-9) Eosinophils (%) (Auto) 1 % (0-3) 2 % (0-3) Basophils (%) (Auto) 1 % (0-3) 1 % (0-3) Neutrophils # (Auto) 9.9 x10^3/uL (1.8-7.7) 4.5 x10^3/uL (1.8-7.7) Lymphocytes # (Auto) 2.0 x10^3/uL (1.0-4.8) 2.3 x10^3/uL (1.0-4.8) Monocytes # (Auto) 1.2 x10^3/uL (0.0-1.1) 0.9 x10^3/uL (0.0-1.1) Eosinophils # (Auto) 0.1 x10^3/uL (0.0-0.7) 0.2 x10^3/uL (0.0-0.7) Basophils # (Auto) 0.1 x10^3/uL (0.0-0.2) 0.1 x10^3/uL (0.0-0.2) Sodium Level 139 mmol/L (136-145) 139 mmol/L (136-145) Potassium Level 4.2 mmol/L (3.5-5.1) 4.1 mmol/L (3.5-5.1) Chloride Level 101 mmol/L (98-107) 104 mmol/L (98-107) Carbon Dioxide Level 27 mmol/L (21-32) 28 mmol/L (21-32) Anion Gap 11 (6-14) 7 (6-14) Blood Urea Nitrogen 10 mg/dL (7-20) 12 mg/dL (7-20) Creatinine 0.9 mg/dL (0.6-1.0) 0.8 mg/dL (0.6-1.0) Estimated GFR (Cockcroft-Gault) 65.2 74.7 BUN/Creatinine Ratio 11 (6-20) 15 (6-20) Glucose Level 125 mg/dL (70-99) 110 mg/dL (70-99) Calcium Level 9.3 mg/dL (8.5-10.1) 8.8 mg/dL (8.5-10.1) Total Bilirubin 0.3 mg/dL (0.2-1.0) 0.5 mg/dL (0.2-1.0) Aspartate Amino Transf (AST/SGOT) 33 U/L (15-37) 50 U/L (15-37) Alanine Aminotransferase (ALT/SGPT) 61 U/L (14-59) 85 U/L (14-59) Alkaline Phosphatase 102 U/L (46-116) 101 U/L (46-116) Troponin I Quantitative < 0.017 ng/mL (0.000-0.055) Total Protein 8.0 g/dL (6.4-8.2) 7.0 g/dL (6.4-8.2) Albumin 3.4 g/dL (3.4-5.0) 2.8 g/dL (3.4-5.0) Albumin/Globulin Ratio 0.7 (1.0-1.7) 0.7 (1.0-1.7) Lipase 108 U/L (73-393) Urine Collection Type Unknown Urine Color Irina Urine Clarity Clear Urine pH 5.5 (<5.0-8.0) Urine Specific [employer] [place] >=1.030 (1.000-1.030) Urine Protein Negative mg/dL (NEG-TRACE) Urine Glucose (UA) Negative mg/dL (NEG) Urine Ketones (Stick) Negative mg/dL (NEG) Urine Blood Negative (NEG) Urine Nitrite Negative (NEG) Urine Bilirubin Small (NEG) Urine Urobilinogen Dipstick 1.0 mg/dL (0.2 mg/dL) Urine Leukocyte Esterase Trace (NEG) Urine RBC 0 /HPF (0-2) Urine WBC 5-10 /HPF (0-4) Urine Squamous Epithelial Cells Many /LPF Urine Bacteria Moderate /HPF (0-FEW) Urine Mucus Marked /LPF Urine Test Negative (NEG) Prothrombin Time 14.9 SEC (11.7-14.0) Prothromb Time International Ratio 1.2 (0.8-1.1) Allergies: Coded Allergies: Penicillins (Verified Allergy, Intermediate, 06/09/17) Medications: Current Medications Medications (Trade) Dose Ordered Sig/Favio Route PRN Reason Start Time Stop Time Status Last Admin Dose Admin Sodium Chloride 1,000 ml @ 1,000 mls/hr 1X ONCE IV 08/06/19 13:45 08/06/19 14:44 DC 08/06/19 14:20 Morphine Sulfate (Morphine Sulfate) 4 mg 1X ONCE IV 08/06/19 13:45 08/06/19 13:46 DC 08/06/19 14:20 Ondansetron HCl (Zofran) 4 mg 1X ONCE IVP 08/06/19 13:45 08/06/19 13:46 DC 08/06/19 14:19 Famotidine (Pepcid Vial) 20 mg 1X ONCE IVP 08/06/19 15:45 08/06/19 15:46 DC 08/06/19 16:21 Fentanyl Citrate (Fentanyl 2ml Vial) 25 mcg PRN Q2HR PRN IVP PAIN 08/06/19 16:00 08/06/19 18:20 Ketorolac Tromethamine (Toradol 30mg Vial) 30 mg PRN Q6HRS PRN IVP PAIN 08/06/19 16:00 08/11/19 15:59 08/07/19 00:11 Imaging: Imaging: Abd US IMPRESSION: 1. Cholelithiasis with positive sonographic Zhong sign. HIDA scan can further evaluate for gallbladder function. 2. Increased hepatic echotexture, may indicate steatosis. HIDA Impression: 1. No definite activity seen within the gallbladder after initial 60 minutes with potential faint activity seen on delayed imaging after morphine administration at 100 minutes. Findings may represent acute cholecystitis or at least chronic cholecystitis. PE: GEN: NAD HEENT: Atraumatic, PERRL LUNGS: CTAB HEART: RRR ABD: NABS, S/ND, RUQ tenderness to light touch EXTREMITY: No edema SKIN: No rashes, no jaundice NEURO/PSYCH: A & O 3 A/P: A/P: RUQ pain Diarrhea - resolved Leukocytosis (resolved), elevated AST and ALT, ?UTI Cholelithiasis, possible cholecystitis - normal CBD (4mm) on US Intermittent hematochezia CRC screen - none ?hepatic steatosis -- Since I have seen, HIDA results as above and surgery saw - plans for ch olecystectomy pending COVID testing. Add acid-lead loader - IV for now. Monitor for diarrhea - already has stool tests ordered. Outpt screening colonoscopy +/- EGD. GEM GARVEY Aug 07, 2019 10:33
[2019-08-07] MEDS: PANTOPRAZOLE IV PUSH 40 MG VIAL. IVP SCH (11:04)
--- NOTE | 2019-08-07 11:41 | PDOC ---
PROGRESS NOTES History of Present Illness History of Present Illness IMPRESSION: 1. Cholelithiasis with positive sonographic Zhong sign. HIDA scan can further evaluate for gallbladder function. 2. Increased hepatic echotexture, may indicate steatosis. VTE Prophylaxis Ordered VTE Prophylaxis Devices: No VTE Pharmacological Prophylaxi: Yes Assessment/Plan impression Abdominal pain - likely from symptomatic gallbladder disease, acute. No cholecystitis. Will keep NPO, HIDA scan. Consult general surgery No definite activity seen within the gallbladder after initial 60 minutes with potential faint activity seen on delayed imaging after morphine administration at 100 minutes. Findings may represent acute cholecystitis or at least chronic cholecystitis. Nausea - IV antiemetics Diarrhea - will culture stool, check for community acquired. c. diff, shiga toxi n. Consult GI Leukocytosis - likely reactive, does not appear septic. Will trend WBCs Hyperglycemia - likely stress reaction, no hx of DM2, will check A1c, TSH Transaminitis - check TSH, likely from GI symptoms. trend HTN - does not recall meds. Will reconcile. HTN urgency, will place on hydralazine IV prn Smoker - Counseled on cessation. not interested in nicotine patch currently FEN - NPO PPX - lovenox FULL CODE Dispo - inpatient 2 midnights. 30 Min pt exam, chart review, > 50% of time spent with exam, chart review, pt care coordination Vitals Vitals Vital Signs Date Time Temp Pulse Resp B/P (MAP) Pulse Ox O2 Delivery O2 Flow Rate FiO2 08/07/19 10:09 Room Air 08/07/19 09:00 16 08/07/19 08:50 171/65 (100) 08/07/19 07:00 98.1 66 95 98.1 08/06/19 15:50 94.0 Physical Exam General: Alert, Oriented X3, Cooperative, mild distress Heart: Regular rate, No murmurs Abdomen: Normal bowel sounds, Soft, Other (Tender to palpation right upper quadrant) Extremities: No cyanosis, No edema Skin: No significant lesion Labs LABS Operative Note Date: 08/07/2019 Preoperative diagnosis: Acute cholecystitis Postoperative diagnosis: Same Procedure: Laparoscopic cholecystectomy Surgeon: Miller Specimen: Gallbladder Dictation: Patient is a 54-year-old female admitted to the hospital for right upper quadrant abdominal pain and ultrasound showing gallstones and thickened gallbladder wall. NM HEPATOBILIARY SCAN W PHARM History: Right upper quadrant pain. Comparison: Ultrasound August 06, 2019 Technique: 5.5 mCi technetium 99m Choletec was administered intravenously and spot views were obtained on the gamma camera for a Nuclear Medicine hepatobiliary scan. Findings: There is rapid uptake of activity from the blood pool and concentration in the liver. No definite activity is seen within the gallbladder after 70 minutes. Activity seen within the small bowel and 20 minutes. 4 mg of morphine was administered. Faint activity is seen within the region of the gallbladder is identified on lateral view 100 minutes. Impression: 1. No definite activity seen within the gallbladder after initial 60 minutes with potential faint activity seen on delayed imaging after morphine administration at 100 minutes. Findings may represent acute cholecystitis or at least chronic cholecystitis. Electronically signed by: Helder Friend DO (08/07/2019 9:40 AM) [id number] DICTATED and SIGNED BY: HELDER FRIEND DO DATE: 08/07/19 0991 PATIENT: FABIOLA SEVERINO ACCOUNT: [id number] : 1965 LOCATION: ER AGE: 54 SEX: F EXAM STATUS: PRE ER ORD. PHYSICIAN: SHAUN VIGIL DO REASON: RUQ pain PROCEDURE: ABDOMEN LTD ABDOMEN LTD History: Reason: RUQ pain / Spl. Instructions: / History: Comparison: None. Technique: Transabdominal ultrasound images are obtained of the right upper quadrant. Findings: Visualized pancreas is unremarkable. Liver is increased in echogenicity. Right hepatic lobe measures 15.2 cm. Portal flow is hepatopedal. Cholelithiasis. Positive sonographic Zhong sign. No gallbladder wall thickening or pericholecystic fluid. Common bile duct measures 4 mm in diameter. The right kidney measures 10.2 x 6.3 x 4.8 cm. No hydronephrosis. Visualized portions of the aorta and IVC have normal caliber. IMPRESSION: 1. Cholelithiasis with positive sonographic Zhong sign. HIDA scan can further evaluate for gallbladder function. 2. Increased hepatic echotexture, may indicate steatosis. Electronically signed by: Helder Friend DO (08/06/2019 2:44 PM) [id number] DICTATED and SIGNED BY: HELDER FRIEND DO DATE: 08/06/19 1444 Laboratory Tests Test 08/06/19 14:00 08/07/19 05:40 08/07/19 05:50 White Blood Count 13.4 x10^3/uL (4.0-11.0) 7.9 x10^3/uL (4.0-11.0) Red Blood Count 5.60 x10^6/uL (3.50-5.40) 5.17 x10^6/uL (3.50-5.40) Hemoglobin 15.5 g/dL (12.0-15.5) 14.3 g/dL (12.0-15.5) Hematocrit 45.6 % (36.0-47.0) 42.8 % (36.0-47.0) Mean Corpuscular Volume 81 fL (79-100) 83 fL (79-100) Mean Corpuscular Hemoglobin 28 pg (25-35) 28 pg (25-35) Mean Corpuscular Hemoglobin Concent 34 g/dL (31-37) 33 g/dL (31-37) Red Cell Distribution Width 15.1 % (11.5-14.5) 14.9 % (11.5-14.5) Platelet Count 332 x10^3/uL (140-400) 301 x10^3/uL (140-400) Neutrophils (%) (Auto) 74 % (31-73) 57 % (31-73) Lymphocytes (%) (Auto) 15 % (24-48) 29 % (24-48) Monocytes (%) (Auto) 9 % (0-9) 11 % (0-9) Eosinophils (%) (Auto) 1 % (0-3) 2 % (0-3) Basophils (%) (Auto) 1 % (0-3) 1 % (0-3) Neutrophils # (Auto) 9.9 x10^3/uL (1.8-7.7) 4.5 x10^3/uL (1.8-7.7) Lymphocytes # (Auto) 2.0 x10^3/uL (1.0-4.8) 2.3 x10^3/uL (1.0-4.8) Monocytes # (Auto) 1.2 x10^3/uL (0.0-1.1) 0.9 x10^3/uL (0.0-1.1) Eosinophils # (Auto) 0.1 x10^3/uL (0.0-0.7) 0.2 x10^3/uL (0.0-0.7) Basophils # (Auto) 0.1 x10^3/uL (0.0-0.2) 0.1 x10^3/uL (0.0-0.2) Sodium Level 139 mmol/L (136-145) 139 mmol/L (136-145) Potassium Level 4.2 mmol/L (3.5-5.1) 4.1 mmol/L (3.5-5.1) Chloride Level 101 mmol/L (98-107) 104 mmol/L (98-107) Carbon Dioxide Level 27 mmol/L (21-32) 28 mmol/L (21-32) Anion Gap 11 (6-14) 7 (6-14) Blood Urea Nitrogen 10 mg/dL (7-20) 12 mg/dL (7-20) Creatinine 0.9 mg/dL (0.6-1.0) 0.8 mg/dL (0.6-1.0) Estimated GFR (Cockcroft-Gault) 65.2 74.7 BUN/Creatinine Ratio 11 (6-20) 15 (6-20) Glucose Level 125 mg/dL (70-99) 110 mg/dL (70-99) Calcium Level 9.3 mg/dL (8.5-10.1) 8.8 mg/dL (8.5-10.1) Total Bilirubin 0.3 mg/dL (0.2-1.0) 0.5 mg/dL (0.2-1.0) Aspartate Amino Transf (AST/SGOT) 33 U/L (15-37) 50 U/L (15-37) Alanine Aminotransferase (ALT/SGPT) 61 U/L (14-59) 85 U/L (14-59) Alkaline Phosphatase 102 U/L (46-116) 101 U/L (46-116) Troponin I Quantitative < 0.017 ng/mL (0.000-0.055) Total Protein 8.0 g/dL (6.4-8.2) 7.0 g/dL (6.4-8.2) Albumin 3.4 g/dL (3.4-5.0) 2.8 g/dL (3.4-5.0) Albumin/Globulin Ratio 0.7 (1.0-1.7) 0.7 (1.0-1.7) Lipase 108 U/L (73-393) Urine Collection Type Unknown Urine Color Irina Urine Clarity Clear Urine pH 5.5 (<5.0-8.0) Urine Specific [place] >=1.030 (1.000-1.030) Urine Protein Negative mg/dL (NEG-TRACE) Urine Glucose (UA) Negative mg/dL (NEG) Urine Ketones (Stick) Negative mg/dL (NEG) Urine Blood Negative (NEG) Urine Nitrite Negative (NEG) Urine Bilirubin Small (NEG) Urine Urobilinogen Dipstick 1.0 mg/dL (0.2 mg/dL) Urine Leukocyte Esterase Trace (NEG) Urine RBC 0 /HPF (0-2) Urine WBC 5-10 /HPF (0-4) Urine Squamous Epithelial Cells Many /LPF Urine Bacteria Moderate /HPF (0-FEW) Urine Mucus Marked /LPF Urine Test Negative (NEG) Prothrombin Time 14.9 SEC (11.7-14.0) Prothromb Time International Ratio 1.2 (0.8-1.1) Assessment and Plan Assessmemt and Plan Problems Medical Problems: (1) Cholelithiasis Status: Acute Comment Review of Relevant I have reviewed the following items titi (where applicable) has been applied. Labs Laboratory Tests Test 08/06/19 14:00 08/07/19 05:40 08/07/19 05:50 White Blood Count 13.4 x10^3/uL (4.0-11.0) 7.9 x10^3/uL (4.0-11.0) Red Blood Count 5.60 x10^6/uL (3.50-5.40) 5.17 x10^6/uL (3.50-5.40) Hemoglobin 15.5 g/dL (12.0-15.5) 14.3 g/dL (12.0-15.5) Hematocrit 45.6 % (36.0-47.0) 42.8 % (36.0-47.0) Mean Corpuscular Volume 81 fL (79-100) 83 fL (79-100) Mean Corpuscular Hemoglobin 28 pg (25-35) 28 pg (25-35) Mean Corpuscular Hemoglobin Concent 34 g/dL (31-37) 33 g/dL (31-37) Red Cell Distribution Width 15.1 % (11.5-14.5) 14.9 % (11.5-14.5) Platelet Count 332 x10^3/uL (140-400) 301 x10^3/uL (140-400) Neutrophils (%) (Auto) 74 % (31-73) 57 % (31-73) Lymphocytes (%) (Auto) 15 % (24-48) 29 % (24-48) Monocytes (%) (Auto) 9 % (0-9) 11 % (0-9) Eosinophils (%) (Auto) 1 % (0-3) 2 % (0-3) Basophils (%) (Auto) 1 % (0-3) 1 % (0-3) Neutrophils # (Auto) 9.9 x10^3/uL (1.8-7.7) 4.5 x10^3/uL (1.8-7.7) Lymphocytes # (Auto) 2.0 x10^3/uL (1.0-4.8) 2.3 x10^3/uL (1.0-4.8) Monocytes # (Auto) 1.2 x10^3/uL (0.0-1.1) 0.9 x10^3/uL (0.0-1.1) Eosinophils # (Auto) 0.1 x10^3/uL (0.0-0.7) 0.2 x10^3/uL (0.0-0.7) Basophils # (Auto) 0.1 x10^3/uL (0.0-0.2) 0.1 x10^3/uL (0.0-0.2) Sodium Level 139 mmol/L (136-145) 139 mmol/L (136-145) Potassium Level 4.2 mmol/L (3.5-5.1) 4.1 mmol/L (3.5-5.1) Chloride Level 101 mmol/L (98-107) 104 mmol/L (98-107) Carbon Dioxide Level 27 mmol/L (21-32) 28 mmol/L (21-32) Anion Gap 11 (6-14) 7 (6-14) Blood Urea Nitrogen 10 mg/dL (7-20) 12 mg/dL (7-20) Creatinine 0.9 mg/dL (0.6-1.0) 0.8 mg/dL (0.6-1.0) Estimated GFR (Cockcroft-Gault) 65.2 74.7 BUN/Creatinine Ratio 11 (6-20) 15 (6-20) Glucose Level 125 mg/dL (70-99) 110 mg/dL (70-99) Calcium Level 9.3 mg/dL (8.5-10.1) 8.8 mg/dL (8.5-10.1) Total Bilirubin 0.3 mg/dL (0.2-1.0) 0.5 mg/dL (0.2-1.0) Aspartate Amino Transf (AST/SGOT) 33 U/L (15-37) 50 U/L (15-37) Alanine Aminotransferase (ALT/SGPT) 61 U/L (14-59) 85 U/L (14-59) Alkaline Phosphatase 102 U/L (46-116) 101 U/L (46-116) Troponin I Quantitative < 0.017 ng/mL (0.000-0.055) Total Protein 8.0 g/dL (6.4-8.2) 7.0 g/dL (6.4-8.2) Albumin 3.4 g/dL (3.4-5.0) 2.8 g/dL (3.4-5.0) Albumin/Globulin Ratio 0.7 (1.0-1.7) 0.7 (1.0-1.7) Lipase 108 U/L (73-393) Urine Collection Type Unknown Urine Color Irina Urine Clarity Clear Urine pH 5.5 (<5.0-8.0) Urine Specific [place] >=1.030 (1.000-1.030) Urine Protein Negative mg/dL (NEG-TRACE) Urine Glucose (UA) Negative mg/dL (NEG) Urine Ketones (Stick) Negative mg/dL (NEG) Urine Blood Negative (NEG) Urine Nitrite Negative (NEG) Urine Bilirubin Small (NEG) Urine Urobilinogen Dipstick 1.0 mg/dL (0.2 mg/dL) Urine Leukocyte Esterase Trace (NEG) Urine RBC 0 /HPF (0-2) Urine WBC 5-10 /HPF (0-4) Urine Squamous Epithelial Cells Many /LPF Urine Bacteria Moderate /HPF (0-FEW) Urine Mucus Marked /LPF Urine Test Negative (NEG) Prothrombin Time 14.9 SEC (11.7-14.0) Prothromb Time International Ratio 1.2 (0.8-1.1) Laboratory Tests Test 08/06/19 14:00 08/07/19 05:40 08/07/19 05:50 White Blood Count 13.4 x10^3/uL (4.0-11.0) 7.9 x10^3/uL (4.0-11.0) Red Blood Count 5.60 x10^6/uL (3.50-5.40) 5.17 x10^6/uL (3.50-5.40) Hemoglobin 15.5 g/dL (12.0-15.5) 14.3 g/dL (12.0-15.5) Hematocrit 45.6 % (36.0-47.0) 42.8 % (36.0-47.0) Mean Corpuscular Volume 81 fL (79-100) 83 fL (79-100) Mean Corpuscular Hemoglobin 28 pg (25-35) 28 pg (25-35) Mean Corpuscular Hemoglobin Concent 34 g/dL (31-37) 33 g/dL (31-37) Red Cell Distribution Width 15.1 % (11.5-14.5) 14.9 % (11.5-14.5) Platelet Count 332 x10^3/uL (140-400) 301 x10^3/uL (140-400) Neutrophils (%) (Auto) 74 % (31-73) 57 % (31-73) Lymphocytes (%) (Auto) 15 % (24-48) 29 % (24-48) Monocytes (%) (Auto) 9 % (0-9) 11 % (0-9) Eosinophils (%) (Auto) 1 % (0-3) 2 % (0-3) Basophils (%) (Auto) 1 % (0-3) 1 % (0-3) Neutrophils # (Auto) 9.9 x10^3/uL (1.8-7.7) 4.5 x10^3/uL (1.8-7.7) Lymphocytes # (Auto) 2.0 x10^3/uL (1.0-4.8) 2.3 x10^3/uL (1.0-4.8) Monocytes # (Auto) 1.2 x10^3/uL (0.0-1.1) 0.9 x10^3/uL (0.0-1.1) Eosinophils # (Auto) 0.1 x10^3/uL (0.0-0.7) 0.2 x10^3/uL (0.0-0.7) Basophils # (Auto) 0.1 x10^3/uL (0.0-0.2) 0.1 x10^3/uL (0.0-0.2) Sodium Level 139 mmol/L (136-145) 139 mmol/L (136-145) Potassium Level 4.2 mmol/L (3.5-5.1) 4.1 mmol/L (3.5-5.1) Chloride Level 101 mmol/L (98-107) 104 mmol/L (98-107) Carbon Dioxide Level 27 mmol/L (21-32) 28 mmol/L (21-32) Anion Gap 11 (6-14) 7 (6-14) Blood Urea Nitrogen 10 mg/dL (7-20) 12 mg/dL (7-20) Creatinine 0.9 mg/dL (0.6-1.0) 0.8 mg/dL (0.6-1.0) Estimated GFR (Cockcroft-Gault) 65.2 74.7 BUN/Creatinine Ratio 11 (6-20) 15 (6-20) Glucose Level 125 mg/dL (70-99) 110 mg/dL (70-99) Calcium Level 9.3 mg/dL (8.5-10.1) 8.8 mg/dL (8.5-10.1) Total Bilirubin 0.3 mg/dL (0.2-1.0) 0.5 mg/dL (0.2-1.0) Aspartate Amino Transf (AST/SGOT) 33 U/L (15-37) 50 U/L (15-37) Alanine Aminotransferase (ALT/SGPT) 61 U/L (14-59) 85 U/L (14-59) Alkaline Phosphatase 102 U/L (46-116) 101 U/L (46-116) Troponin I Quantitative < 0.017 ng/mL (0.000-0.055) Total Protein 8.0 g/dL (6.4-8.2) 7.0 g/dL (6.4-8.2) Albumin 3.4 g/dL (3.4-5.0) 2.8 g/dL (3.4-5.0) Albumin/Globulin Ratio 0.7 (1.0-1.7) 0.7 (1.0-1.7) Lipase 108 U/L (73-393) Urine Collection Type Unknown Urine Color Irina Urine Clarity Clear Urine pH 5.5 (<5.0-8.0) Urine Specific [place] >=1.030 (1.000-1.030) Urine Protein Negative mg/dL (NEG-TRACE) Urine Glucose (UA) Negative mg/dL (NEG) Urine Ketones (Stick) Negative mg/dL (NEG) Urine Blood Negative (NEG) Urine Nitrite Negative (NEG) Urine Bilirubin Small (NEG) Urine Urobilinogen Dipstick 1.0 mg/dL (0.2 mg/dL) Urine Leukocyte Esterase Trace (NEG) Urine RBC 0 /HPF (0-2) Urine WBC 5-10 /HPF (0-4) Urine Squamous Epithelial Cells Many /LPF Urine Bacteria Moderate /HPF (0-FEW) Urine Mucus Marked /LPF Urine Test Negative (NEG) Prothrombin Time 14.9 SEC (11.7-14.0) Prothromb Time International Ratio 1.2 (0.8-1.1) Medications Current Medications Sodium Chloride 1,000 ml @ 1,000 mls/hr 1X ONCE IV Last administered on 08/06/19at 14:20; Start 08/06/19 at 13:45; Stop 08/06/19 at 14:44; Status DC Morphine Sulfate (Morphine Sulfate) 4 mg 1X ONCE IV Last administered on 08/06/19at 14:20; Start 08/06/19 at 13:45; Stop 08/06/19 at 13:46; Status DC Ondansetron HCl (Zofran) 4 mg 1X ONCE IVP Last administered on 08/06/19at 14:19; Start 08/06/19 at 13:45; Stop 08/06/19 at 13:46; Status DC Famotidine (Pepcid Vial) 20 mg 1X ONCE IVP Last administered on 08/06/19at 16:21; Start 08/06/19 at 15:45; Stop 08/06/19 at 15:46; Status DC Ondansetron HCl (Zofran) 4 mg PRN Q4HRS PRN IV NAUSEA/VOMITING; Start 08/06/19 at 16:00 Zolpidem Tartrate (Ambien) 5 mg PRN QHS PRN PO INSOMNIA; Start 08/06/19 at 16:00 Acetaminophen (Tylenol Supp) 650 mg PRN Q4HRS PRN LA TEMP OVER 100.4F OR MILD PAIN; Start 08/06/19 at 16:00 Albuterol Sulfate (Ventolin Neb Soln) 2.5 mg PRN Q4HRS PRN NEB SHORTNESS OF BREATH; Start 08/06/19 at 16:00 Guaifenesin (Robitussin) 200 mg PRN Q4HRS PRN PO COUGH; Start 08/06/19 at 16:00 Enoxaparin Sodium (Lovenox 40mg Syringe) 40 mg Q24H SQ ; Start 08/06/19 at 16:00 Fentanyl Citrate (Fentanyl 2ml Vial) 25 mcg PRN Q2HR PRN IVP PAIN Last administered on 08/06/19at 18:20; Start 08/06/19 at 16:00 Ketorolac Tromethamine (Toradol 30mg Vial) 30 mg PRN Q6HRS PRN IVP PAIN Last administered on 08/07/19at 00:11; Start 08/06/19 at 16:00; Stop 08/11/19 at 15:59 Hydralazine HCl (Apresoline Inj) 10 mg PRN Q4HRS PRN IVP ELEVATED BP, SEE COMMENTS; Start 08/06/19 at 16:00 Morphine Sulfate (Morphine Sulfate) 4 mg 1X ONCE IV Last administered on 08/07/19at 09:00; Start 08/07/19 at 09:00; Stop 08/07/19 at 09:01; Status DC Morphine Sulfate (Morphine Sulfate) 4 mg STK-MED ONCE .ROUTE ; Start 08/07/19 at 08:26; Stop 08/07/19 at 08:26; Status DC Pantoprazole Sodium (PROTONIX VIAL for IV PUSH) 40 mg DAILYAC IVP Last administered on 08/07/19at 11:04; Start 08/07/19 at 11:00 Active Scripts Active [id number] 50-300-40 (Butalb/Acetaminophen/Caffeine) 1 Each Capsule 1 Each PO Q6HRS Vitals/I & O Vital Sign - Last 24 Hours 08/06/19 08/06/19 08/06/19 08/06/19 13:43 14:20 14:45 15:30 Temp 97.7 97.7 Pulse 120 92 78 Resp 20 20 18 18 B/P (MAP) 175/81 (112) 160/65 (96) 200/82 (121) Pulse Ox 92 93 96 94 O2 Delivery Room Air Room Air Room Air Room Air 08/06/19 08/06/19 08/06/19 08/06/19 15:50 16:00 18:20 19:00 Temp 98.7 98.9 98.7 98.9 Pulse 84 85 Resp 20 20 B/P (MAP) 136/64 (88) 119/63 (81) Pulse Ox 98 O2 Delivery Room Air Room Air Room Air Room Air O2 Flow Rate 94.0 08/06/19 08/06/19 08/07/19 08/07/19 20:00 23:00 03:00 07:00 Temp 98.5 98.3 98.1 98.5 98.3 98.1 Pulse 71 71 66 Resp 20 17 B/P (MAP) 110/70 (83) 113/72 (86) 131/75 (93) Pulse Ox 95 94 95 O2 Delivery Room Air Room Air Room Air Room Air 08/07/19 08/07/19 08/07/19 08/07/19 08:30 08:50 09:00 10:09 Resp 16 B/P (MAP) 143/92 (109) 171/65 (100) O2 Delivery Room Air Room Air Intake and Output 08/06/19 08/06/19 08/07/19 15:00 23:00 07:00 Intake Total 300 ml 200 ml Output Total 400 ml Balance 300 ml -200 ml HAYES ANN MD Aug 07, 2019 11:41
[2019-08-07] MEDS ORDERED: PROPOFOL 10 MG/ML (20ML) VIAL. IV ONE (12:12)
[2019-08-07] MEDS ORDERED: LIDOCAINE 2% PF 5 ML VIAL. ONE ×2 (12:12→15:05)
[2019-08-07] MEDS ORDERED: SUCCINYLCHOLINE 200 MG/10 ML VIAL. ONE (12:26)
[2019-08-07] MEDS ORDERED: ONDANSETRON PF 4 MG/2 ML VIAL. ONE (12:26)
[2019-08-07] MEDS ORDERED: DEXAMETHASONE SOD PHOS 4 MG/ML VIAL ONE (12:26)
[2019-08-07] MEDS ORDERED: ROCURONIUM 50 MG/5 ML VIAL. ONE (12:28)
[2019-08-07] MEDS ORDERED: fentaNYL PF VIAL 100 MCG/2 ML VIAL ONE ×3 (12:29→15:31)
[2019-08-07] MEDS ORDERED: ePHEDrine PF IN SALINE 50 MG/10 ML SYRINGE. IV ONE (12:30)
[2019-08-07] MEDS ORDERED: MIDAZOLAM HCL/PF 2 MG/2 ML VIAL. ONE (12:30)
--- NOTE | 2019-08-07 13:00 | NUR ---
SW following. Discussed with RN, pt from home, ad shelia, room air. Pt having a lap chlole today. RN advised no SW needs at this time. SW will continue to follow for any discharge planning needs.
[2019-08-07] MEDS ORDERED: IV RINGERS,LACTATED 1000ML 1,000 ML IV SCH (13:05)
[2019-08-07] MEDS ORDERED: MORPHINE SULFATE 2 MG/ML VIAL. IV PRN (13:15)
[2019-08-07] MEDS ORDERED: PROCHLORPERAZINE 10 MG/2 ML VIAL. IV PRN (13:15)
[2019-08-07] MEDS ORDERED: fentaNYL PF VIAL 100 MCG/2 ML VIAL IV PRN (13:15)
[2019-08-07] MEDS ORDERED: ONDANSETRON PF 4 MG/2 ML VIAL. IV PRN (13:15)
[2019-08-07] MEDS ORDERED: HYDROmorphone 2 MG/ML VIAL IV PRN (13:15)
[2019-08-07] MEDS ORDERED: BUPIVACAINE-EPI 0.25%-1:200000 MPF 30 ML VIAL. ONE (13:44)
[2019-08-07] MEDS ORDERED: DESFLURANE > 120 MINUTES IH ONE (13:58)
[2019-08-07] MEDS ORDERED: NEOSTIGMINE METHYLSULFATE 5 MG/5 ML SYRINGE. ONE (13:59)
[2019-08-07] MEDS ORDERED: GLYCOPYRROLATE 1 MG/5 ML VIAL. ONE (13:59)
[2019-08-07] MEDS ORDERED: ALBUMIN HUMAN 25% 50 ML IV ONE (14:00)
[2019-08-07] MEDS ORDERED: ESMOLOL 100 MG/10 ML VIAL. IVP ONE (14:16)
[2019-08-07] MEDS ORDERED: FAMOTIDINE 20 MG/2 ML VIAL ONE (14:16)
--- NOTE | 2019-08-07 15:09 | PDOC4 ---
Operative Note Operative Note Date: 08/07/2019 Preoperative diagnosis: Acute cholecystitis Postoperative diagnosis: Same Procedure: Laparoscopic cholecystectomy Surgeon: Miller Specimen: Gallbladder Dictation: Patient is a 54-year-old female admitted to the hospital for right upper quadrant abdominal pain and ultrasound showing gallstones and thickened gallbladder wall. The procedure of laparoscopic cholecystectomy was explained to the patient in detail risks and benefits are also discussed including bleeding infection injury to intra-abdominal contents possibly necessitating further or open operations alternatives to this procedure also discussed with the patient who seemed to understand and gave both verbal and written consent at the procedure performed. Patient was taken to the operating room placed in the supine position general anesthesia was initiated once patient was sleeping in the bed her abdomen was prepped and draped in usual sterile fashion using ChloraPrep. An area in the left upper quadrant was injected with quarter percent Marcaine with epinephrine incision was made with 11 blade scalpel and a 5 mm Visiport was placed under direct visualization into the abdomen creating pneumoperitoneum once this was complete the abdomen was inspected with 5 mm camera was noted there quite a few adhesions and quite a bit of inflammation in the right upper quadrant a 5 mm port was placed in the right lateral abdomen under direct visualization 1 in the right midabdomen and one in the epigastrium all under direct visualization and a 12 mm port was placed just off to the midline of the umbilicus under direct visualization to avoid adhesions in the midline. The camera was then switched over to the 12 mm port the dome of the gallbladder is grasped retracted cephalad there was quite a few adhesions to the omentum these were taken down with blunt dissection large amount of inflammatory reaction. The infundibular gallbladder is grasped retracted laterally exposing the triangle of adherent tissue the triangle were taken down exposing the cystic artery which was doubly clipped the cystic duct was then visualized completely encircled and doubly clipped and transected the gallbladder was then taken off the liver with hook electrocautery placed in Endo Catch bag and removed from the 12 mm port site. The right upper quadrant was irrigated and suctioned dry a ALEX drain was placed along the gallbladder fossa into the right gutter brought out through the lateral right 5 mm port. This drain was sewn into place with a 3-0 silk suture. The fascial defect at the 12 mm port site was closed with a [id number] 0 Vicryl suture and the skin was approximated port site forcep to get a Monocryl Mastisol Steri-Strips and island dressings were applied. Patient was awakened and extubated in the operating room taken to recovery in stable condition all sponge instrument needle counts listed as correct estimated blood loss 30 mL. HAYES SOLIMAN MD Aug 07, 2019 15:09
[2019-08-07] MEDS: fentaNYL PF VIAL 100 MCG/2 ML VIAL IV PRN ×2 (15:36→15:43)
[2019-08-07] MEDS: ENOXAPARIN 40 MG/0.4 ML SYRINGE. SQ SCH (16:58)
--- NOTE | 2019-08-07 17:09 | NUR ---
Per Fabiana RN in the PACU, Albumin that was ordered for pt was an incorrect order. Fabiana stated she would discontinue the order. This RN will nonadminister medication.
[2019-08-07] MEDS: IV RINGERS,LACTATED 1000ML 1,000 ML IV SCH (17:39)
[2019-08-07] MEDS: BENZOCAINE/MENTHOL LOZENGE. PO PRN (22:11)
[2019-08-08 00:07] LABS: HEMOGLOBIN A1C 6.5 % (4.8-5.6)
[2019-08-08 03:00] VITALS: BP 159/78
[2019-08-08 07:00] VITALS: BP 153/83
[2019-08-08] MEDS: KETOROLAC 30 MG/ML VIAL. IVP PRN ×2 (07:05→13:28)
[2019-08-08] MEDS: PANTOPRAZOLE IV PUSH 40 MG VIAL. IVP SCH (07:06)
[2019-08-08] MEDS: IV RINGERS,LACTATED 1000ML 1,000 ML IV SCH ×2 (07:07→12:30)
[2019-08-08] MEDS: BENZOCAINE/MENTHOL LOZENGE. PO PRN (07:15)
[2019-08-08 07:23] LABS: BASO % 0 % (0-3); EOS % 0 % (0-3); HEMATOCRIT 39.6 % (36.0-47.0); LYMPH # 1.8 x10^3/uL (1.0-4.8); LYMPH % 17 % (24-48); MEAN CORPUSCULAR HEMOGLOBIN 27 pg (25-35); MEAN CORPUSCULAR HGB CONC 33 g/dL (31-37); MEAN CORPUSCULAR VOLUME 83 fL (79-100); MONO % 10 % (0-9); NEUT # 7.7 x10^3/uL (1.8-7.7); NEUT % 73 % (31-73); PLATELET COUNT 286 x10^3/uL (140-400); RED BLOOD COUNT 4.77 x10^6/uL (3.50-5.40); RED CELL DISTRIBUTION WIDTH 14.5 % (11.5-14.5); WHITE BLOOD COUNT 10.6 x10^3/uL (4.0-11.0)
[2019-08-08 07:39] LABS: ALBUMIN 2.6 g/dL (3.4-5.0); ALBUMIN/GLOBULIN RATIO 0.7 (1.0-1.7); CALCIUM 8.4 mg/dL (8.5-10.1); CREATININE 0.8 mg/dL (0.6-1.0); GFR 74.7; POTASSIUM 4.1 mmol/L (3.5-5.1); TOTAL BILIRUBIN 0.3 mg/dL (0.2-1.0); TOTAL PROTEIN 6.5 g/dL (6.4-8.2)
--- NOTE | 2019-08-08 10:09 | PDOC ---
Subjective: Subjective: Feeling much better after surgery, much less pain. Tolerating diet. No diarrhea. Objective: Vital Signs: Vital Signs Date Time Temp Pulse Resp B/P (MAP) Pulse Ox O2 Delivery O2 Flow Rate FiO2 08/08/19 08:00 Room Air 08/08/19 07:00 98.9 74 18 153/83 (106) 93 98.9 08/07/19 16:35 2 Labs: Laboratory Tests Test 08/08/19 06:20 White Blood Count 10.6 x10^3/uL Red Blood Count 4.77 x10^6/uL Hemoglobin 13.0 g/dL Hematocrit 39.6 % Mean Corpuscular Volume 83 fL Mean Corpuscular Hemoglobin 27 pg Mean Corpuscular Hemoglobin Concent 33 g/dL Red Cell Distribution Width 14.5 % Platelet Count 286 x10^3/uL Neutrophils (%) (Auto) 73 % Lymphocytes (%) (Auto) 17 % Monocytes (%) (Auto) 10 % Eosinophils (%) (Auto) 0 % Basophils (%) (Auto) 0 % Neutrophils # (Auto) 7.7 x10^3/uL Lymphocytes # (Auto) 1.8 x10^3/uL Monocytes # (Auto) 1.0 x10^3/uL Eosinophils # (Auto) 0.0 x10^3/uL Basophils # (Auto) 0.0 x10^3/uL Sodium Level 140 mmol/L Potassium Level 4.1 mmol/L Chloride Level 103 mmol/L Carbon Dioxide Level 31 mmol/L Anion Gap 6 Blood Urea Nitrogen 11 mg/dL Creatinine 0.8 mg/dL Estimated GFR (Cockcroft-Gault) 74.7 BUN/Creatinine Ratio 14 Glucose Level 117 mg/dL Calcium Level 8.4 mg/dL Total Bilirubin 0.3 mg/dL Aspartate Amino Transf (AST/SGOT) 52 U/L Alanine Aminotransferase (ALT/SGPT) 91 U/L Alkaline Phosphatase 95 U/L Total Protein 6.5 g/dL Albumin 2.6 g/dL Albumin/Globulin Ratio 0.7 PE: GEN: NAD, was sleeping LUNGS: CTAB HEART: RRR ABD: soft NEURO/PSYCH: A & O 3 A/P: S/p cholecystectomy Mildly elevated AST and ALT, possible hepatic steatosis -- Pain improved post-op. Continue per surgery. Outpt 'scopes. Justicifation of Admission Dx: Justifications for Admission: Justification of Admission Dx: Yes GEM GARVEY Aug 08, 2019 10:09
--- NOTE | 2019-08-08 10:19 | NUR ---
SW following. Discussed with RN, pt from home, ad shelia. Had lap sandhya yesterday. RN advised no SW needs at this time, anticipates possible discharge home today. SW will continue to follow.
[2019-08-08 11:00] VITALS: BP 106/79
--- NOTE | 2019-08-08 11:16 | PDOC ---
PROGRESS NOTES History of Present Illness History of Present Illness IMPRESSION: 1. Cholelithiasis with positive sonographic Zohng sign. HIDA scan can further evaluate for gallbladder function. 2. Increased hepatic echotexture, may indicate steatosis. VTE Prophylaxis Ordered VTE Prophylaxis Devices: No VTE Pharmacological Prophylaxi: Yes discharge dx impression Abdominal pain - // symptomatic gallbladder disease, acute. No cholecystitis. Will keep NPO, HIDA scan. Consult general surgery No definite activity seen within the gallbladder after initial 60 minutes with potential faint activity seen on delayed imaging after morphine administration at 100 minutes. Findings may represent acute cholecystitis or at least chronic cholecystitis. Nausea - IV antiemetics Diarrhea - will culture stool, check for community acquired. c. diff, shiga tox in. Consult GI Leukocytosis - likely reactive, does not appear septic. Will trend WBCs Hyperglycemia - likely stress reaction, no hx of DM2, will check A1c, TSH Transaminitis - check TSH, likely from GI symptoms. trend HTN - does not recall meds. Will reconcile. HTN urgency, will place on hydralazine IV prn Smoker - Counseled on cessation. not interested in nicotine patch currently FEN - NPO PPX - lovenox FULL CODE Dispo - inpatient 2 midnights. surgery ok with d/c today Operative Note Date: 08/07/2019 Preoperative diagnosis: Acute cholecystitis Postoperative diagnosis: Same Procedure: Laparoscopic cholecystectomy Surgeon: Miller Specimen: Gallbladder Dictation: Patient is a 54-year-old female admitted to the hospital for right upper quadrant abdominal pain and ultrasound showing gallstones and thickened gallbladder wall. 33 Min pt exam, chart review, d/c planning time > 50% of time spent with exam, chart review, pt care coordination Vitals Vitals Vital Signs Date Time Temp Pulse Resp B/P (MAP) Pulse Ox O2 Delivery O2 Flow Rate FiO2 08/08/19 08:00 Room Air 08/08/19 07:00 98.9 74 18 153/83 (106) 93 98.9 08/07/19 16:35 2 Physical Exam General: Alert, Oriented X3, Cooperative, mild distress Heart: Regular rate, Normal S1, Normal S2, No murmurs Lungs: Clear Abdomen: Normal bowel sounds, Soft, Other (Tender to palpation right upper quadrant) Extremities: No cyanosis, No edema Skin: No significant lesion Labs LABS Laboratory Tests Test 08/08/19 06:20 White Blood Count 10.6 x10^3/uL (4.0-11.0) Red Blood Count 4.77 x10^6/uL (3.50-5.40) Hemoglobin 13.0 g/dL (12.0-15.5) Hematocrit 39.6 % (36.0-47.0) Mean Corpuscular Volume 83 fL (79-100) Mean Corpuscular Hemoglobin 27 pg (25-35) Mean Corpuscular Hemoglobin Concent 33 g/dL (31-37) Red Cell Distribution Width 14.5 % (11.5-14.5) Platelet Count 286 x10^3/uL (140-400) Neutrophils (%) (Auto) 73 % (31-73) Lymphocytes (%) (Auto) 17 % (24-48) Monocytes (%) (Auto) 10 % (0-9) Eosinophils (%) (Auto) 0 % (0-3) Basophils (%) (Auto) 0 % (0-3) Neutrophils # (Auto) 7.7 x10^3/uL (1.8-7.7) Lymphocytes # (Auto) 1.8 x10^3/uL (1.0-4.8) Monocytes # (Auto) 1.0 x10^3/uL (0.0-1.1) Eosinophils # (Auto) 0.0 x10^3/uL (0.0-0.7) Basophils # (Auto) 0.0 x10^3/uL (0.0-0.2) Sodium Level 140 mmol/L (136-145) Potassium Level 4.1 mmol/L (3.5-5.1) Chloride Level 103 mmol/L (98-107) Carbon Dioxide Level 31 mmol/L (21-32) Anion Gap 6 (6-14) Blood Urea Nitrogen 11 mg/dL (7-20) Creatinine 0.8 mg/dL (0.6-1.0) Estimated GFR (Cockcroft-Gault) 74.7 BUN/Creatinine Ratio 14 (6-20) Glucose Level 117 mg/dL (70-99) Calcium Level 8.4 mg/dL (8.5-10.1) Total Bilirubin 0.3 mg/dL (0.2-1.0) Aspartate Amino Transf (AST/SGOT) 52 U/L (15-37) Alanine Aminotransferase (ALT/SGPT) 91 U/L (14-59) Alkaline Phosphatase 95 U/L (46-116) Total Protein 6.5 g/dL (6.4-8.2) Albumin 2.6 g/dL (3.4-5.0) Albumin/Globulin Ratio 0.7 (1.0-1.7) Assessment and Plan Assessmemt and Plan Problems Medical Problems: (1) Cholelithiasis Status: Acute Comment Review of Relevant I have reviewed the following items titi (where applicable) has been applied. Labs Laboratory Tests Test 08/06/19 14:00 08/06/19 15:20 08/07/19 05:40 08/07/19 05:50 White Blood Count 13.4 x10^3/uL (4.0-11.0) 7.9 x10^3/uL (4.0-11.0) Red Blood Count 5.60 x10^6/uL (3.50-5.40) 5.17 x10^6/uL (3.50-5.40) Hemoglobin 15.5 g/dL (12.0-15.5) 14.3 g/dL (12.0-15.5) Hematocrit 45.6 % (36.0-47.0) 42.8 % (36.0-47.0) Mean Corpuscular Volume 81 fL (79-100) 83 fL (79-100) Mean Corpuscular Hemoglobin 28 pg (25-35) 28 pg (25-35) Mean Corpuscular Hemoglobin Concent 34 g/dL (31-37) 33 g/dL (31-37) Red Cell Distribution Width 15.1 % (11.5-14.5) 14.9 % (11.5-14.5) Platelet Count 332 x10^3/uL (140-400) 301 x10^3/uL (140-400) Neutrophils (%) (Auto) 74 % (31-73) 57 % (31-73) Lymphocytes (%) (Auto) 15 % (24-48) 29 % (24-48) Monocytes (%) (Auto) 9 % (0-9) 11 % (0-9) Eosinophils (%) (Auto) 1 % (0-3) 2 % (0-3) Basophils (%) (Auto) 1 % (0-3) 1 % (0-3) Neutrophils # (Auto) 9.9 x10^3/uL (1.8-7.7) 4.5 x10^3/uL (1.8-7.7) Lymphocytes # (Auto) 2.0 x10^3/uL (1.0-4.8) 2.3 x10^3/uL (1.0-4.8) Monocytes # (Auto) 1.2 x10^3/uL (0.0-1.1) 0.9 x10^3/uL (0.0-1.1) Eosinophils # (Auto) 0.1 x10^3/uL (0.0-0.7) 0.2 x10^3/uL (0.0-0.7) Basophils # (Auto) 0.1 x10^3/uL (0.0-0.2) 0.1 x10^3/uL (0.0-0.2) Sodium Level 139 mmol/L (136-145) 139 mmol/L (136-145) Potassium Level 4.2 mmol/L (3.5-5.1) 4.1 mmol/L (3.5-5.1) Chloride Level 101 mmol/L (98-107) 104 mmol/L (98-107) Carbon Dioxide Level 27 mmol/L (21-32) 28 mmol/L (21-32) Anion Gap 11 (6-14) 7 (6-14) Blood Urea Nitrogen 10 mg/dL (7-20) 12 mg/dL (7-20) Creatinine 0.9 mg/dL (0.6-1.0) 0.8 mg/dL (0.6-1.0) Estimated GFR (Cockcroft-Gault) 65.2 74.7 BUN/Creatinine Ratio 11 (6-20) 15 (6-20) Glucose Level 125 mg/dL (70-99) 110 mg/dL (70-99) Hemoglobin A1c 6.5 % (4.8-5.6) Calcium Level 9.3 mg/dL (8.5-10.1) 8.8 mg/dL (8.5-10.1) Total Bilirubin 0.3 mg/dL (0.2-1.0) 0.5 mg/dL (0.2-1.0) Aspartate Amino Transf (AST/SGOT) 33 U/L (15-37) 50 U/L (15-37) Alanine Aminotransferase (ALT/SGPT) 61 U/L (14-59) 85 U/L (14-59) Alkaline Phosphatase 102 U/L (46-116) 101 U/L (46-116) Troponin I Quantitative < 0.017 ng/mL (0.000-0.055) Total Protein 8.0 g/dL (6.4-8.2) 7.0 g/dL (6.4-8.2) Albumin 3.4 g/dL (3.4-5.0) 2.8 g/dL (3.4-5.0) Albumin/Globulin Ratio 0.7 (1.0-1.7) 0.7 (1.0-1.7) Lipase 108 U/L (73-393) Coronavirus (COVID-19)(PCR) Negative (NEGATIVE) Urine Collection Type Unknown Urine Color Irina Urine Clarity Clear Urine pH 5.5 (<5.0-8.0) Urine Specific [place] >=1.030 (1.000-1.030) Urine Protein Negative mg/dL (NEG-TRACE) Urine Glucose (UA) Negative mg/dL (NEG) Urine Ketones (Stick) Negative mg/dL (NEG) Urine Blood Negative (NEG) Urine Nitrite Negative (NEG) Urine Bilirubin Small (NEG) Urine Urobilinogen Dipstick 1.0 mg/dL (0.2 mg/dL) Urine Leukocyte Esterase Trace (NEG) Urine RBC 0 /HPF (0-2) Urine WBC 5-10 /HPF (0-4) Urine Squamous Epithelial Cells Many /LPF Urine Bacteria Moderate /HPF (0-FEW) Urine Mucus Marked /LPF Urine Test Negative (NEG) Prothrombin Time 14.9 SEC (11.7-14.0) Prothromb Time International Ratio 1.2 (0.8-1.1) Test 08/08/19 06:20 White Blood Count 10.6 x10^3/uL (4.0-11.0) Red Blood Count 4.77 x10^6/uL (3.50-5.40) Hemoglobin 13.0 g/dL (12.0-15.5) Hematocrit 39.6 % (36.0-47.0) Mean Corpuscular Volume 83 fL (79-100) Mean Corpuscular Hemoglobin 27 pg (25-35) Mean Corpuscular Hemoglobin Concent 33 g/dL (31-37) Red Cell Distribution Width 14.5 % (11.5-14.5) Platelet Count 286 x10^3/uL (140-400) Neutrophils (%) (Auto) 73 % (31-73) Lymphocytes (%) (Auto) 17 % (24-48) Monocytes (%) (Auto) 10 % (0-9) Eosinophils (%) (Auto) 0 % (0-3) Basophils (%) (Auto) 0 % (0-3) Neutrophils # (Auto) 7.7 x10^3/uL (1.8-7.7) Lymphocytes # (Auto) 1.8 x10^3/uL (1.0-4.8) Monocytes # (Auto) 1.0 x10^3/uL (0.0-1.1) Eosinophils # (Auto) 0.0 x10^3/uL (0.0-0.7) Basophils # (Auto) 0.0 x10^3/uL (0.0-0.2) Sodium Level 140 mmol/L (136-145) Potassium Level 4.1 mmol/L (3.5-5.1) Chloride Level 103 mmol/L (98-107) Carbon Dioxide Level 31 mmol/L (21-32) Anion Gap 6 (6-14) Blood Urea Nitrogen 11 mg/dL (7-20) Creatinine 0.8 mg/dL (0.6-1.0) Estimated GFR (Cockcroft-Gault) 74.7 BUN/Creatinine Ratio 14 (6-20) Glucose Level 117 mg/dL (70-99) Calcium Level 8.4 mg/dL (8.5-10.1) Total Bilirubin 0.3 mg/dL (0.2-1.0) Aspartate Amino Transf (AST/SGOT) 52 U/L (15-37) Alanine Aminotransferase (ALT/SGPT) 91 U/L (14-59) Alkaline Phosphatase 95 U/L (46-116) Total Protein 6.5 g/dL (6.4-8.2) Albumin 2.6 g/dL (3.4-5.0) Albumin/Globulin Ratio 0.7 (1.0-1.7) Laboratory Tests Test 08/08/19 06:20 White Blood Count 10.6 x10^3/uL (4.0-11.0) Red Blood Count 4.77 x10^6/uL (3.50-5.40) Hemoglobin 13.0 g/dL (12.0-15.5) Hematocrit 39.6 % (36.0-47.0) Mean Corpuscular Volume 83 fL (79-100) Mean Corpuscular Hemoglobin 27 pg (25-35) Mean Corpuscular Hemoglobin Concent 33 g/dL (31-37) Red Cell Distribution Width 14.5 % (11.5-14.5) Platelet Count 286 x10^3/uL (140-400) Neutrophils (%) (Auto) 73 % (31-73) Lymphocytes (%) (Auto) 17 % (24-48) Monocytes (%) (Auto) 10 % (0-9) Eosinophils (%) (Auto) 0 % (0-3) Basophils (%) (Auto) 0 % (0-3) Neutrophils # (Auto) 7.7 x10^3/uL (1.8-7.7) Lymphocytes # (Auto) 1.8 x10^3/uL (1.0-4.8) Monocytes # (Auto) 1.0 x10^3/uL (0.0-1.1) Eosinophils # (Auto) 0.0 x10^3/uL (0.0-0.7) Basophils # (Auto) 0.0 x10^3/uL (0.0-0.2) Sodium Level 140 mmol/L (136-145) Potassium Level 4.1 mmol/L (3.5-5.1) Chloride Level 103 mmol/L (98-107) Carbon Dioxide Level 31 mmol/L (21-32) Anion Gap 6 (6-14) Blood Urea Nitrogen 11 mg/dL (7-20) Creatinine 0.8 mg/dL (0.6-1.0) Estimated GFR (Cockcroft-Gault) 74.7 BUN/Creatinine Ratio 14 (6-20) Glucose Level 117 mg/dL (70-99) Calcium Level 8.4 mg/dL (8.5-10.1) Total Bilirubin 0.3 mg/dL (0.2-1.0) Aspartate Amino Transf (AST/SGOT) 52 U/L (15-37) Alanine Aminotransferase (ALT/SGPT) 91 U/L (14-59) Alkaline Phosphatase 95 U/L (46-116) Total Protein 6.5 g/dL (6.4-8.2) Albumin 2.6 g/dL (3.4-5.0) Albumin/Globulin Ratio 0.7 (1.0-1.7) Microbiology 08/07/19 Urine Culture - Final, Complete Medications Current Medications Sodium Chloride 1,000 ml @ 1,000 mls/hr 1X ONCE IV Last administered on 08/06/19at 14:20; Start 08/06/19 at 13:45; Stop 08/06/19 at 14:44; Status DC Morphine Sulfate (Morphine Sulfate) 4 mg 1X ONCE IV Last administered on 08/06/19at 14:20; Start 08/06/19 at 13:45; Stop 08/06/19 at 13:46; Status DC Ondansetron HCl (Zofran) 4 mg 1X ONCE IVP Last administered on 08/06/19at 14:19; Start 08/06/19 at 13:45; Stop 08/06/19 at 13:46; Status DC Famotidine (Pepcid Vial) 20 mg 1X ONCE IVP Last administered on 08/06/19at 16:21; Start 08/06/19 at 15:45; Stop 08/06/19 at 15:46; Status DC Ondansetron HCl (Zofran) 4 mg PRN Q4HRS PRN IV NAUSEA/VOMITING; Start 08/06/19 at 16:00 Zolpidem Tartrate (Ambien) 5 mg PRN QHS PRN PO INSOMNIA; Start 08/06/19 at 16:00 Acetaminophen (Tylenol Supp) 650 mg PRN Q4HRS PRN OK TEMP OVER 100.4F OR MILD PAIN; Start 08/06/19 at 16:00 Albuterol Sulfate (Ventolin Neb Soln) 2.5 mg PRN Q4HRS PRN NEB SHORTNESS OF BR EATH; Start 08/06/19 at 16:00 Guaifenesin (Robitussin) 200 mg PRN Q4HRS PRN PO COUGH Last administered on 08/08/19at 07:15; Start 08/06/19 at 16:00 Enoxaparin Sodium (Lovenox 40mg Syringe) 40 mg Q24H SQ Last administered on 08/07/19at 16:58; Start 08/06/19 at 16:00 Fentanyl Citrate (Fentanyl 2ml Vial) 25 mcg PRN Q2HR PRN IVP PAIN Last administered on 08/06/19at 18:20; Start 08/06/19 at 16:00 Ketorolac Tromethamine (Toradol 30mg Vial) 30 mg PRN Q6HRS PRN IVP PAIN Last administered on 08/08/19at 07:05; Start 08/06/19 at 16:00; Stop 08/11/19 at 15:59 Hydralazine HCl (Apresoline Inj) 10 mg PRN Q4HRS PRN IVP ELEVATED BP, SEE COMMENTS Last administered on 08/07/19at 16:11; Start 08/06/19 at 16:00 Morphine Sulfate (Morphine Sulfate) 4 mg 1X ONCE IV Last administered on 08/07/19at 09:00; Start 08/07/19 at 09:00; Stop 08/07/19 at 09:01; Status DC Morphine Sulfate (Morphine Sulfate) 4 mg STK-MED ONCE .ROUTE ; Start 08/07/19 at 08:26; Stop 08/07/19 at 08:26; Status DC Pantoprazole Sodium (PROTONIX VIAL for IV PUSH) 40 mg DAILYAC IVP Last administered on 08/08/19at 07:06; Start 08/07/19 at 11:00 Propofol (Diprivan) 200 mg STK-MED ONCE IV ; Start 08/07/19 at 12:12; Stop 08/07/19 at 12:13; Status DC Lidocaine HCl (Lidocaine Pf 2% Vial) 5 ml STK-MED ONCE .ROUTE ; Start 08/07/19 at 12:12; Stop 08/07/19 at 12:13; Status DC Dexamethasone Sodium Phosphate (Decadron) 4 mg STK-MED ONCE .ROUTE ; Start 08/07/19 at 12:26; Stop 08/07/19 at 12:26; Status DC Ondansetron HCl (Zofran) 4 mg STK-MED ONCE .ROUTE ; Start 08/07/19 at 12:26; Stop 08/07/19 at 12:26; Status DC Succinylcholine Chloride (Anectine) 200 mg STK-MED ONCE .ROUTE ; Start 08/07/19 at 12:26; Stop 08/07/19 at 12:27; Status DC Rocuronium Corinne (Zemuron) 50 mg STK-MED ONCE .ROUTE ; Start 08/07/19 at 12:28; Stop 08/07/19 at 12:29; Status DC Fentanyl Citrate (Fentanyl 2ml Vial) 100 mcg STK-MED ONCE .ROUTE ; Start 08/07/19 at 12:29; Stop 08/07/19 at 12:30; Status DC Midazolam HCl (Versed) 2 mg STK-MED ONCE .ROUTE ; Start 08/07/19 at 12:30; Stop 08/07/19 at 12:31; Status DC Ephedrine Sulfate (ePHEDrine PF IN SALINE SYRINGE) 50 mg STK-MED ONCE IV ; Start 08/07/19 at 12:30; Stop 08/07/19 at 12:31; Status DC Ondansetron HCl (Zofran) 4 mg PRN Q6HRS PRN IV NAUSEA/VOMITING; Start 08/07/19 at 13:15; Stop 08/08/19 at 13:14 Fentanyl Citrate (Fentanyl 2ml Vial) 25 mcg PRN Q5MIN PRN IV MILD PAIN 1-3; Start 08/07/19 at 13:15; Stop 08/08/19 at 13:14 Fentanyl Citrate (Fentanyl 2ml Vial) 50 mcg PRN Q5MIN PRN IV MODERATE TO SEVERE PAIN Last administered on 08/07/19at 15:43; Start 08/07/19 at 13:15; Stop 08/08/19 at 13:14 Morphine Sulfate (Morphine Sulfate) 1 mg PRN Q10MIN PRN IV SEVERE PAIN 7-10; Start 08/07/19 at 13:15; Stop 08/08/19 at 13:14 Ringer's Solution 1,000 ml @ 30 mls/hr Q24H IV Last administered on 08/07/19at 13:22; Start 08/07/19 at 13:05; Stop 08/08/19 at 01:04; Status DC Hydromorphone HCl (Dilaudid) 0.5 mg PRN Q10MIN PRN IV SEV PAIN, Second choice; Start 08/07/19 at 13:15; Stop 08/08/19 at 13:14 Prochlorperazine Edisylate (Compazine) 5 mg PACU PRN PRN IV NAUSEA, MRX1; Start 08/07/19 at 13:15; Stop 08/08/19 at 13:14 Cefazolin Sodium/ Dextrose 50 ml @ 100 mls/hr 1X ONCE IV Last administered on 08/07/19at 13:55; Start 08/07/19 at 14:00; Stop 08/07/19 at 14:29; Status DC Bupivacaine HCl/ Epinephrine Bitart (Sensorcaine-Epi 0.25%-1:[id number] Mpf) 30 ml STK-MED ONCE .ROUTE Last administered on 08/07/19at 13:59; Start 08/07/19 at 13:44; Stop 08/07/19 at 13:44; Status DC Albumin Human 50 ml @ 50 mls/hr 1X ONCE IV ; Start 08/07/19 at 14:00; Stop 08/07/19 at 14:59; Status DC Desflurane (Suprane) 90 ml STK-MED ONCE IH ; Start 08/07/19 at 13:58; Stop 08/07/19 at 13:58; Status DC Glycopyrrolate (Robinul) 1 mg STK-MED ONCE .ROUTE ; Start 08/07/19 at 13:59; St op 08/07/19 at 13:59; Status DC Neostigmine Corinne (Neostigmine Methylsulfate) 5 mg STK-MED ONCE .ROUTE ; Start 08/07/19 at 13:59; Stop 08/07/19 at 14:00; Status DC Fentanyl Citrate (Fentanyl 2ml Vial) 100 mcg STK-MED ONCE .ROUTE ; Start 08/07/19 at 14:03; Stop 08/07/19 at 14:03; Status DC Esmolol HCl (Brevibloc) 100 mg STK-MED ONCE IVP ; Start 08/07/19 at 14:16; Stop 08/07/19 at 14:16; Status DC Famotidine (Pepcid Vial) 20 mg STK-MED ONCE .ROUTE ; Start 08/07/19 at 14:16; Stop 08/07/19 at 14:16; Status DC Lidocaine HCl (Lidocaine Pf 2% Vial) 5 ml STK-MED ONCE .ROUTE ; Start 08/07/19 at 15:05; Stop 08/07/19 at 15:06; Status DC Fentanyl Citrate (Fentanyl 2ml Vial) 100 mcg STK-MED ONCE .ROUTE ; Start 08/07/19 at 15:31; Stop 08/07/19 at 15:31; Status DC Ringer's Solution 1,000 ml @ 100 mls/hr Q10H IV Last administered on 08/08/19at 07:07; Start 08/07/19 at 16:30 Throat Lozenges (Cepacol Sore Throat Lozenge) 1 david PRN Q3HRS PRN PO SORE THROAT Last administered on 08/08/19at 07:15; Start 08/07/19 at 21:30 Active Scripts Active [id number] 50-300-40 (Butalb/Acetaminophen/Caffeine) 1 Each Capsule 1 Each PO Q6HRS Vitals/I & O Vital Sign - Last 24 Hours 08/07/19 08/07/19 08/07/19 08/07/19 13:07 15:20 15:30 15:35 Temp 97.8 98 98.0 97.8 98.0 98.0 Pulse 68 73 72 Resp 22 B/P (MAP) 139/79 175/68 198/86 Pulse Ox 93 99 99 O2 Delivery Room Air Simple Mask Mask Simple Mask O2 Flow Rate 10 10 10 08/07/19 08/07/19 08/07/19 08/07/19 15:36 15:43 15:50 16:05 Temp 98.0 98.0 98.0 98.0 Pulse 75 76 Resp 22 20 20 B/P (MAP) 166/78 163/76 Pulse Ox 99 99 99 92 O2 Delivery Simple Mask Simple Mask Simple Mask Room Air O2 Flow Rate 10.0 10.0 5 08/07/19 08/07/19 08/07/19 08/07/19 16:11 16:13 16:15 16:20 Temp 97.6 97.6 Pulse 76 84 Resp 20 20 24 B/P (MAP) 163/76 137/69 Pulse Ox 92 99 96 O2 Delivery Room Air Simple Mask Nasal Cannula O2 Flow Rate 5.0 2 08/07/19 08/07/19 08/07/19 08/07/19 16:35 19:00 19:15 19:30 Temp 97.6 99.3 97.6 99.3 Pulse 90 84 81 93 Resp 22 18 B/P (MAP) 146/65 153/53 (86) 125/50 (75) 149/76 (100) Pulse Ox 95 95 92 91 O2 Delivery Nasal Cannula Room Air Room Air Room Air O2 Flow Rate 2 08/07/19 08/07/19 08/07/19 08/07/19 19:45 20:00 20:15 20:45 Pulse 88 90 81 B/P (MAP) 152/74 (100) 167/52 (90) 150/74 (99) Pulse Ox 91 90 95 O2 Delivery Room Air Room Air Room Air Room Air 08/07/19 08/08/19 08/08/19 08/08/19 23:00 03:00 07:00 08:00 Temp 98.8 98.6 98.9 98.8 98.6 98.9 Pulse 83 76 74 Resp 18 18 18 B/P (MAP) 138/77 (97) 159/78 (105) 153/83 (106) Pulse Ox 94 94 93 O2 Delivery Room Air Room Air Room Air Room Air Intake and Output 08/07/19 08/07/19 08/08/19 15:00 23:00 07:00 Intake Total 1050 ml Output Total 85 ml 60 ml Balance 965 ml -60 ml AHYES ANN MD Aug 08, 2019 11:16
--- NOTE | 2019-08-08 13:21 | PDOC ---
SURGICAL PROGRESS NOTE Subjective Patient feeling much better, tolerating diet Vital Signs Vital Signs Date Time Temp Pulse Resp B/P (MAP) Pulse Ox O2 Delivery O2 Flow Rate FiO2 08/08/19 11:00 97.6 79 18 106/79 (88) 92 Room Air 97.6 08/07/19 16:35 2 I&O Intake and Output 08/08/19 07:00 Intake Total 1050 ml Output Total 145 ml Balance 905 ml Intake Oral 50 ml IV Total 1000 ml Drainage Total 115 ml Estimated Blood Loss 30 ml # Voids 2 PATIENT HAS A FRANK: No General: Alert, Oriented X3, Cooperative, mild distress Abdomen: Normal bowel sounds, Soft, Other (Mild incisional tenderness, ALEX drain with serosanguineous drainage no bile) Labs Laboratory Tests Test 08/06/19 14:00 08/06/19 15:20 08/07/19 05:40 08/07/19 05:50 White Blood Count 13.4 x10^3/uL (4.0-11.0) 7.9 x10^3/uL (4.0-11.0) Red Blood Count 5.60 x10^6/uL (3.50-5.40) 5.17 x10^6/uL (3.50-5.40) Hemoglobin 15.5 g/dL (12.0-15.5) 14.3 g/dL (12.0-15.5) Hematocrit 45.6 % (36.0-47.0) 42.8 % (36.0-47.0) Mean Corpuscular Volume 81 fL (79-100) 83 fL (79-100) Mean Corpuscular Hemoglobin 28 pg (25-35) 28 pg (25-35) Mean Corpuscular Hemoglobin Concent 34 g/dL (31-37) 33 g/dL (31-37) Red Cell Distribution Width 15.1 % (11.5-14.5) 14.9 % (11.5-14.5) Platelet Count 332 x10^3/uL (140-400) 301 x10^3/uL (140-400) Neutrophils (%) (Auto) 74 % (31-73) 57 % (31-73) Lymphocytes (%) (Auto) 15 % (24-48) 29 % (24-48) Monocytes (%) (Auto) 9 % (0-9) 11 % (0-9) Eosinophils (%) (Auto) 1 % (0-3) 2 % (0-3) Basophils (%) (Auto) 1 % (0-3) 1 % (0-3) Neutrophils # (Auto) 9.9 x10^3/uL (1.8-7.7) 4.5 x10^3/uL (1.8-7.7) Lymphocytes # (Auto) 2.0 x10^3/uL (1.0-4.8) 2.3 x10^3/uL (1.0-4.8) Monocytes # (Auto) 1.2 x10^3/uL (0.0-1.1) 0.9 x10^3/uL (0.0-1.1) Eosinophils # (Auto) 0.1 x10^3/uL (0.0-0.7) 0.2 x10^3/uL (0.0-0.7) Basophils # (Auto) 0.1 x10^3/uL (0.0-0.2) 0.1 x10^3/uL (0.0-0.2) Sodium Level 139 mmol/L (136-145) 139 mmol/L (136-145) Potassium Level 4.2 mmol/L (3.5-5.1) 4.1 mmol/L (3.5-5.1) Chloride Level 101 mmol/L (98-107) 104 mmol/L (98-107) Carbon Dioxide Level 27 mmol/L (21-32) 28 mmol/L (21-32) Anion Gap 11 (6-14) 7 (6-14) Blood Urea Nitrogen 10 mg/dL (7-20) 12 mg/dL (7-20) Creatinine 0.9 mg/dL (0.6-1.0) 0.8 mg/dL (0.6-1.0) Estimated GFR (Cockcroft-Gault) 65.2 74.7 BUN/Creatinine Ratio 11 (6-20) 15 (6-20) Glucose Level 125 mg/dL (70-99) 110 mg/dL (70-99) Hemoglobin A1c 6.5 % (4.8-5.6) Calcium Level 9.3 mg/dL (8.5-10.1) 8.8 mg/dL (8.5-10.1) Total Bilirubin 0.3 mg/dL (0.2-1.0) 0.5 mg/dL (0.2-1.0) Aspartate Amino Transf (AST/SGOT) 33 U/L (15-37) 50 U/L (15-37) Alanine Aminotransferase (ALT/SGPT) 61 U/L (14-59) 85 U/L (14-59) Alkaline Phosphatase 102 U/L (46-116) 101 U/L (46-116) Troponin I Quantitative < 0.017 ng/mL (0.000-0.055) Total Protein 8.0 g/dL (6.4-8.2) 7.0 g/dL (6.4-8.2) Albumin 3.4 g/dL (3.4-5.0) 2.8 g/dL (3.4-5.0) Albumin/Globulin Ratio 0.7 (1.0-1.7) 0.7 (1.0-1.7) Lipase 108 U/L (73-393) Coronavirus (COVID-19)(PCR) Negative (NEGATIVE) Urine Collection Type Unknown Urine Color Irina Urine Clarity Clear Urine pH 5.5 (<5.0-8.0) Urine Specific [place] >=1.030 (1.000-1.030) Urine Protein Negative mg/dL (NEG-TRACE) Urine Glucose (UA) Negative mg/dL (NEG) Urine Ketones (Stick) Negative mg/dL (NEG) Urine Blood Negative (NEG) Urine Nitrite Negative (NEG) Urine Bilirubin Small (NEG) Urine Urobilinogen Dipstick 1.0 mg/dL (0.2 mg/dL) Urine Leukocyte Esterase Trace (NEG) Urine RBC 0 /HPF (0-2) Urine WBC 5-10 /HPF (0-4) Urine Squamous Epithelial Cells Many /LPF Urine Bacteria Moderate /HPF (0-FEW) Urine Mucus Marked /LPF Urine Test Negative (NEG) Prothrombin Time 14.9 SEC (11.7-14.0) Prothromb Time International Ratio 1.2 (0.8-1.1) Test 08/08/19 06:20 White Blood Count 10.6 x10^3/uL (4.0-11.0) Red Blood Count 4.77 x10^6/uL (3.50-5.40) Hemoglobin 13.0 g/dL (12.0-15.5) Hematocrit 39.6 % (36.0-47.0) Mean Corpuscular Volume 83 fL (79-100) Mean Corpuscular Hemoglobin 27 pg (25-35) Mean Corpuscular Hemoglobin Concent 33 g/dL (31-37) Red Cell Distribution Width 14.5 % (11.5-14.5) Platelet Count 286 x10^3/uL (140-400) Neutrophils (%) (Auto) 73 % (31-73) Lymphocytes (%) (Auto) 17 % (24-48) Monocytes (%) (Auto) 10 % (0-9) Eosinophils (%) (Auto) 0 % (0-3) Basophils (%) (Auto) 0 % (0-3) Neutrophils # (Auto) 7.7 x10^3/uL (1.8-7.7) Lymphocytes # (Auto) 1.8 x10^3/uL (1.0-4.8) Monocytes # (Auto) 1.0 x10^3/uL (0.0-1.1) Eosinophils # (Auto) 0.0 x10^3/uL (0.0-0.7) Basophils # (Auto) 0.0 x10^3/uL (0.0-0.2) Sodium Level 140 mmol/L (136-145) Potassium Level 4.1 mmol/L (3.5-5.1) Chloride Level 103 mmol/L (98-107) Carbon Dioxide Level 31 mmol/L (21-32) Anion Gap 6 (6-14) Blood Urea Nitrogen 11 mg/dL (7-20) Creatinine 0.8 mg/dL (0.6-1.0) Estimated GFR (Cockcroft-Gault) 74.7 BUN/Creatinine Ratio 14 (6-20) Glucose Level 117 mg/dL (70-99) Calcium Level 8.4 mg/dL (8.5-10.1) Total Bilirubin 0.3 mg/dL (0.2-1.0) Aspartate Amino Transf (AST/SGOT) 52 U/L (15-37) Alanine Aminotransferase (ALT/SGPT) 91 U/L (14-59) Alkaline Phosphatase 95 U/L (46-116) Total Protein 6.5 g/dL (6.4-8.2) Albumin 2.6 g/dL (3.4-5.0) Albumin/Globulin Ratio 0.7 (1.0-1.7) Laboratory Tests Test 08/08/19 06:20 White Blood Count 10.6 x10^3/uL (4.0-11.0) Red Blood Count 4.77 x10^6/uL (3.50-5.40) Hemoglobin 13.0 g/dL (12.0-15.5) Hematocrit 39.6 % (36.0-47.0) Mean Corpuscular Volume 83 fL (79-100) Mean Corpuscular Hemoglobin 27 pg (25-35) Mean Corpuscular Hemoglobin Concent 33 g/dL (31-37) Red Cell Distribution Width 14.5 % (11.5-14.5) Platelet Count 286 x10^3/uL (140-400) Neutrophils (%) (Auto) 73 % (31-73) Lymphocytes (%) (Auto) 17 % (24-48) Monocytes (%) (Auto) 10 % (0-9) Eosinophils (%) (Auto) 0 % (0-3) Basophils (%) (Auto) 0 % (0-3) Neutrophils # (Auto) 7.7 x10^3/uL (1.8-7.7) Lymphocytes # (Auto) 1.8 x10^3/uL (1.0-4.8) Monocytes # (Auto) 1.0 x10^3/uL (0.0-1.1) Eosinophils # (Auto) 0.0 x10^3/uL (0.0-0.7) Basophils # (Auto) 0.0 x10^3/uL (0.0-0.2) Sodium Level 140 mmol/L (136-145) Potassium Level 4.1 mmol/L (3.5-5.1) Chloride Level 103 mmol/L (98-107) Carbon Dioxide Level 31 mmol/L (21-32) Anion Gap 6 (6-14) Blood Urea Nitrogen 11 mg/dL (7-20) Creatinine 0.8 mg/dL (0.6-1.0) Estimated GFR (Cockcroft-Gault) 74.7 BUN/Creatinine Ratio 14 (6-20) Glucose Level 117 mg/dL (70-99) Calcium Level 8.4 mg/dL (8.5-10.1) Total Bilirubin 0.3 mg/dL (0.2-1.0) Aspartate Amino Transf (AST/SGOT) 52 U/L (15-37) Alanine Aminotransferase (ALT/SGPT) 91 U/L (14-59) Alkaline Phosphatase 95 U/L (46-116) Total Protein 6.5 g/dL (6.4-8.2) Albumin 2.6 g/dL (3.4-5.0) Albumin/Globulin Ratio 0.7 (1.0-1.7) Problem List Problems Medical Problems: (1) Cholelithiasis Status: Acute Assessment/Plan Status post laparoscopic cholecystectomy for acute cholecystitis doing quite well, stable from surgical standpoint could be discharged home from surgical standpoint Justicifation of Admission Dx: Justifications for Admission: Justification of Admission Dx: Yes HAYES SOLIMAN MD Aug 08, 2019 13:21
--- NOTE | 2019-08-08 13:43 | PDOC3 ---
Discharge Summary Date of Admission: August 06, 2019 Date of Discharge: Aug 08, 2019 Follow-Up: 3-5 days Admitting Diagnosis comment: discharge dx impression Abdominal pain - // symptomatic gallbladder disease, acute. No cholecystitis. Will keep NPO, HIDA scan. Consult general surgery No definite activity seen within the gallbladder after initial 60 minutes with potential faint activity seen on delayed imaging after morphine administration at 100 minutes. Findings may represent acute cholecystitis or at least chronic cholecystitis. Nausea - IV antiemetics Diarrhea - will culture stool, check for community acquired. c. diff, shiga toxin. Consult GI Leukocytosis - likely reactive, does not appear septic. Will trend WBCs Hyperglycemia - likely stress reaction, no hx of DM2, will check A1c, TSH Transaminitis - check TSH, likely from GI symptoms. trend HTN - does not recall meds. Will reconcile. HTN urgency, will place on hydralazine IV prn Smoker - Counseled on cessation. not interested in nicotine patch currently FEN -reg diet PPX - lovenox FULL CODE Dispo - inpatient 2 midnights. surgery ok with d/c today 08/07 Operative Note Date: 08/07/2019 Preoperative diagnosis: Acute cholecystitis Postoperative diagnosis: Same Procedure: Laparoscopic cholecystectomy Surgeon: Miller Specimen: Gallbladder Dictation: Patient is a 54-year-old female admitted to the hospital for right upper quadrant abdominal pain and ultrasound showing gallstones and thickened gallbladder wall. 33 Min pt exam, chart review, d/c planning time > 50% of time spent with exam, chart review, pt care coordination Vitals Vitals Vital Signs Date Time Temp Pulse Resp B/P (MAP) Pulse Ox O2 Delivery O2 Flow Rate FiO2 08/08/19 08:00 Room Air 08/08/19 07:00 98.9 74 18 153/83 (106) 93 98.9 08/07/19 16:35 2 Physical Exam General: Alert, Oriented X3, Cooperative, no distress rita diet well Heart: Regular rate, Normal S1, Normal S2, No murmurs Lungs: Clear Abdomen: Normal bowel sounds, Soft, Other (Tender to palpation right upper quadrant) Extremities: No cyanosis, No edema Skin: No significant lesion FINAL DIAGNOSIS Problems Medical Problems: (1) Cholelithiasis Status: Acute Brief Hospital Course Ms. Ibarra is a 54 old [sex] who presented with [ acute cholecystitis ] CONDITION AT DISCHARGE: Improved Discharge Medications Current Medications Sodium Chloride 1,000 ml @ 1,000 mls/hr 1X ONCE IV Last administered on 08/06/19at 14:20; Start 08/06/19 at 13:45; Stop 08/06/19 at 14:44; Status DC Morphine Sulfate (Morphine Sulfate) 4 mg 1X ONCE IV Last administered on 08/06/19at 14:20; Start 08/06/19 at 13:45; Stop 08/06/19 at 13:46; Status DC Ondansetron HCl (Zofran) 4 mg 1X ONCE IVP Last administered on 08/06/19at 14:19; Start 08/06/19 at 13:45; Stop 08/06/19 at 13:46; Status DC Famotidine (Pepcid Vial) 20 mg 1X ONCE IVP Last administered on 08/06/19at 16:2 1; Start 08/06/19 at 15:45; Stop 08/06/19 at 15:46; Status DC Ondansetron HCl (Zofran) 4 mg PRN Q4HRS PRN IV NAUSEA/VOMITING; Start 08/06/19 at 16:00 Zolpidem Tartrate (Ambien) 5 mg PRN QHS PRN PO INSOMNIA; Start 08/06/19 at 16:00 Acetaminophen (Tylenol Supp) 650 mg PRN Q4HRS PRN [place] TEMP OVER 100.4F OR MILD PAIN; Start 08/06/19 at 16:00 Albuterol Sulfate (Ventolin Neb Soln) 2.5 mg PRN Q4HRS PRN NEB SHORTNESS OF BREATH; Start 08/06/19 at 16:00 Guaifenesin (Robitussin) 200 mg PRN Q4HRS PRN PO COUGH Last administered on 08/08/19at 07:15; Start 08/06/19 at 16:00 Enoxaparin Sodium (Lovenox 40mg Syringe) 40 mg Q24H SQ Last administered on 08/07/19at 16:58; Start 08/06/19 at 16:00 Fentanyl Citrate (Fentanyl 2ml Vial) 25 mcg PRN Q2HR PRN IVP PAIN Last administered on 08/06/19at 18:20; Start 08/06/19 at 16:00 Ketorolac Tromethamine (Toradol 30mg Vial) 30 mg PRN Q6HRS PRN IVP PAIN Last administered on 08/08/19at 13:28; Start 08/06/19 at 16:00; Stop 08/11/19 at 15:59 Hydralazine HCl (Apresoline Inj) 10 mg PRN Q4HRS PRN IVP ELEVATED BP, SEE COMMENTS Last administered on 08/07/19at 16:11; Start 08/06/19 at 16:00 Morphine Sulfate (Morphine Sulfate) 4 mg 1X ONCE IV Last administered on 08/07/19at 09:00; Start 08/07/19 at 09:00; Stop 08/07/19 at 09:01; Status DC Morphine Sulfate (Morphine Sulfate) 4 mg STK-MED ONCE .ROUTE ; Start 08/07/19 at 08:26; Stop 08/07/19 at 08:26; Status DC Pantoprazole Sodium (PROTONIX VIAL for IV PUSH) 40 mg DAILYAC IVP Last administered on 08/08/19at 07:06; Start 08/07/19 at 11:00 Propofol (Diprivan) 200 mg STK-MED ONCE IV ; Start 08/07/19 at 12:12; Stop 08/07/19 at 12:13; Status DC Lidocaine HCl (Lidocaine Pf 2% Vial) 5 ml STK-MED ONCE .ROUTE ; Start 08/07/19 at 12:12; Stop 08/07/19 at 12:13; Status DC Dexamethasone Sodium Phosphate (Decadron) 4 mg STK-MED ONCE .ROUTE ; Start 08/07/19 at 12:26; Stop 08/07/19 at 12:26; Status DC Ondansetron HCl (Zofran) 4 mg STK-MED ONCE .ROUTE ; Start 08/07/19 at 12:26; Stop 08/07/19 at 12:26; Status DC Succinylcholine Chloride (Anectine) 200 mg STK-MED ONCE .ROUTE ; Start 08/07/19 at 12:26; Stop 08/07/19 at 12:27; Status DC Rocuronium Nicolaus (Zemuron) 50 mg STK-MED ONCE .ROUTE ; Start 08/07/19 at 12:28; Stop 08/07/19 at 12:29; Status DC Fentanyl Citrate (Fentanyl 2ml Vial) 100 mcg STK-MED ONCE .ROUTE ; Start 08/07/19 at 12:29; Stop 08/07/19 at 12:30; Status DC Midazolam HCl (Versed) 2 mg STK-MED ONCE .ROUTE ; Start 08/07/19 at 12:30; Stop 08/07/19 at 12:31; Status DC Ephedrine Sulfate (ePHEDrine PF IN SALINE SYRINGE) 50 mg STK-MED ONCE IV ; Start 08/07/19 at 12:30; Stop 08/07/19 at 12:31; Status DC Ondansetron HCl (Zofran) 4 mg PRN Q6HRS PRN IV NAUSEA/VOMITING; Start 08/07/19 at 13:15; Stop 08/08/19 at 13:14; Status DC Fentanyl Citrate (Fentanyl 2ml Vial) 25 mcg PRN Q5MIN PRN IV MILD PAIN 1-3; Start 08/07/19 at 13:15; Stop 08/08/19 at 13:14; Status DC Fentanyl Citrate (Fentanyl 2ml Vial) 50 mcg PRN Q5MIN PRN IV MODERATE TO SEVERE PAIN Last administered on 08/07/19at 15:43; Start 08/07/19 at 13:15; Stop 08/08/19 at 13:14; Status DC Morphine Sulfate (Morphine Sulfate) 1 mg PRN Q10MIN PRN IV SEVERE PAIN 7-10; Start 08/07/19 at 13:15; Stop 08/08/19 at 13:14; Status DC Ringer's Solution 1,000 ml @ 30 mls/hr Q24H IV Last administered on 08/07/19at 13:22; Start 08/07/19 at 13:05; Stop 08/08/19 at 01:04; Status DC Hydromorphone HCl (Dilaudid) 0.5 mg PRN Q10MIN PRN IV SEV PAIN, Second choice; Start 08/07/19 at 13:15; Stop 08/08/19 at 13:14; Status DC Prochlorperazine Edisylate (Compazine) 5 mg PACU PRN PRN IV NAUSEA, MRX1; Start 08/07/19 at 13:15; Stop 08/08/19 at 13:14; Status DC Cefazolin Sodium/ Dextrose 50 ml @ 100 mls/hr 1X ONCE IV Last administered on 08/07/19at 13:55; Start 08/07/19 at 14:00; Stop 08/07/19 at 14:29; Status DC Bupivacaine HCl/ Epinephrine Bitart (Sensorcaine-Epi 0.25%-1:[id number] Mpf) 30 ml STK-MED ONCE .ROUTE Last administered on 08/07/19at 13:59; Start 08/07/19 at 13:44; Stop 08/07/19 at 13:44; Status DC Albumin Human 50 ml @ 50 mls/hr 1X ONCE IV ; Start 08/07/19 at 14:00; Stop 08/07/19 at 14:59; Status DC Desflurane (Suprane) 90 ml STK-MED ONCE IH ; Start 08/07/19 at 13:58; Stop 08/07/19 at 13:58; Status DC Glycopyrrolate (Robinul) 1 mg STK-MED ONCE .ROUTE ; Start 08/07/19 at 13:59; Stop 08/07/19 at 13:59; Status DC Neostigmine Nicolaus (Neostigmine Methylsulfate) 5 mg STK-MED ONCE .ROUTE ; Start 08/07/19 at 13:59; Stop 08/07/19 at 14:00; Status DC Fentanyl Citrate (Fentanyl 2ml Vial) 100 mcg STK-MED ONCE .ROUTE ; Start 08/07/19 at 14:03; Stop 08/07/19 at 14:03; Status DC Esmolol HCl (Brevibloc) 100 mg STK-MED ONCE IVP ; Start 08/07/19 at 14:16; Stop 08/07/19 at 14:16; Status DC Famotidine (Pepcid Vial) 20 mg STK-MED ONCE .ROUTE ; Start 08/07/19 at 14:16; Stop 08/07/19 at 14:16; Status DC Lidocaine HCl (Lidocaine Pf 2% Vial) 5 ml STK-MED ONCE .ROUTE ; Start 08/07/19 at 15:05; Stop 08/07/19 at 15:06; Status DC Fentanyl Citrate (Fentanyl 2ml Vial) 100 mcg STK-MED ONCE .ROUTE ; Start 08/07/19 at 15:31; Stop 08/07/19 at 15:31; Status DC Ringer's Solution 1,000 ml @ 100 mls/hr Q10H IV Last administered on 08/08/19at 07:07; Start 08/07/19 at 16:30 Throat Lozenges (Cepacol Sore Throat Lozenge) 1 david PRN Q3HRS PRN PO SORE THROAT Last administered on 08/08/19at 07:15; Start 08/07/19 at 21:30 Active Scripts Active Lezjam-Jakjkysx-Ypao 50-300-40 (Butalb/Acetaminophen/Caffeine) 1 Each Capsule 1 Each PO Q6HRS Vital Signs Vital Signs Date Time Temp Pulse Resp B/P (MAP) Pulse Ox O2 Delivery O2 Flow Rate FiO2 08/08/19 11:00 97.6 79 18 106/79 (88) 92 Room Air 97.6 08/07/19 16:35 2 Labs Laboratory Tests Test 08/06/19 14:00 08/06/19 15:20 08/07/19 05:40 08/07/19 05:50 White Blood Count 13.4 x10^3/uL (4.0-11.0) 7.9 x10^3/uL (4.0-11.0) Red Blood Count 5.60 x10^6/uL (3.50-5.40) 5.17 x10^6/uL (3.50-5.40) Hemoglobin 15.5 g/dL (12.0-15.5) 14.3 g/dL (12.0-15.5) Hematocrit 45.6 % (36.0-47.0) 42.8 % (36.0-47.0) Mean Corpuscular Volume 81 fL (79-100) 83 fL (79-100) Mean Corpuscular Hemoglobin 28 pg (25-35) 28 pg (25-35) Mean Corpuscular Hemoglobin Concent 34 g/dL (31-37) 33 g/dL (31-37) Red Cell Distribution Width 15.1 % (11.5-14.5) 14.9 % (11.5-14.5) Platelet Count 332 x10^3/uL (140-400) 301 x10^3/uL (140-400) Neutrophils (%) (Auto) 74 % (31-73) 57 % (31-73) Lymphocytes (%) (Auto) 15 % (24-48) 29 % (24-48) Monocytes (%) (Auto) 9 % (0-9) 11 % (0-9) Eosinophils (%) (Auto) 1 % (0-3) 2 % (0-3) Basophils (%) (Auto) 1 % (0-3) 1 % (0-3) Neutrophils # (Auto) 9.9 x10^3/uL (1.8-7.7) 4.5 x10^3/uL (1.8-7.7) Lymphocytes # (Auto) 2.0 x10^3/uL (1.0-4.8) 2.3 x10^3/uL (1.0-4.8) Monocytes # (Auto) 1.2 x10^3/uL (0.0-1.1) 0.9 x10^3/uL (0.0-1.1) Eosinophils # (Auto) 0.1 x10^3/uL (0.0-0.7) 0.2 x10^3/uL (0.0-0.7) Basophils # (Auto) 0.1 x10^3/uL (0.0-0.2) 0.1 x10^3/uL (0.0-0.2) Sodium Level 139 mmol/L (136-145) 139 mmol/L (136-145) Potassium Level 4.2 mmol/L (3.5-5.1) 4.1 mmol/L (3.5-5.1) Chloride Level 101 mmol/L (98-107) 104 mmol/L (98-107) Carbon Dioxide Level 27 mmol/L (21-32) 28 mmol/L (21-32) Anion Gap 11 (6-14) 7 (6-14) Blood Urea Nitrogen 10 mg/dL (7-20) 12 mg/dL (7-20) Creatinine 0.9 mg/dL (0.6-1.0) 0.8 mg/dL (0.6-1.0) Estimated GFR (Cockcroft-Gault) 65.2 74.7 BUN/Creatinine Ratio 11 (6-20) 15 (6-20) Glucose Level 125 mg/dL (70-99) 110 mg/dL (70-99) Hemoglobin A1c 6.5 % (4.8-5.6) Calcium Level 9.3 mg/dL (8.5-10.1) 8.8 mg/dL (8.5-10.1) Total Bilirubin 0.3 mg/dL (0.2-1.0) 0.5 mg/dL (0.2-1.0) Aspartate Amino Transf (AST/SGOT) 33 U/L (15-37) 50 U/L (15-37) Alanine Aminotransferase (ALT/SGPT) 61 U/L (14-59) 85 U/L (14-59) Alkaline Phosphatase 102 U/L (46-116) 101 U/L (46-116) Troponin I Quantitative < 0.017 ng/mL (0.000-0.055) Total Protein 8.0 g/dL (6.4-8.2) 7.0 g/dL (6.4-8.2) Albumin 3.4 g/dL (3.4-5.0) 2.8 g/dL (3.4-5.0) Albumin/Globulin Ratio 0.7 (1.0-1.7) 0.7 (1.0-1.7) Lipase 108 U/L (73-393) Coronavirus (COVID-19)(PCR) Negative (NEGATIVE) Urine Collection Type Unknown Urine Color Irina Urine Clarity Clear Urine pH 5.5 (<5.0-8.0) Urine Specific [place] >=1.030 (1.000-1.030) Urine Protein Negative mg/dL (NEG-TRACE) Urine Glucose (UA) Negative mg/dL (NEG) Urine Ketones (Stick) Negative mg/dL (NEG) Urine Blood Negative (NEG) Urine Nitrite Negative (NEG) Urine Bilirubin Small (NEG) Urine Urobilinogen Dipstick 1.0 mg/dL (0.2 mg/dL) Urine Leukocyte Esterase Trace (NEG) Urine RBC 0 /HPF (0-2) Urine WBC 5-10 /HPF (0-4) Urine Squamous Epithelial Cells Many /LPF Urine Bacteria Moderate /HPF (0-FEW) Urine Mucus Marked /LPF Urine Test Negative (NEG) Prothrombin Time 14.9 SEC (11.7-14.0) Prothromb Time International Ratio 1.2 (0.8-1.1) Test 08/08/19 06:20 White Blood Count 10.6 x10^3/uL (4.0-11.0) Red Blood Count 4.77 x10^6/uL (3.50-5.40) Hemoglobin 13.0 g/dL (12.0-15.5) Hematocrit 39.6 % (36.0-47.0) Mean Corpuscular Volume 83 fL (79-100) Mean Corpuscular Hemoglobin 27 pg (25-35) Mean Corpuscular Hemoglobin Concent 33 g/dL (31-37) Red Cell Distribution Width 14.5 % (11.5-14.5) Platelet Count 286 x10^3/uL (140-400) Neutrophils (%) (Auto) 73 % (31-73) Lymphocytes (%) (Auto) 17 % (24-48) Monocytes (%) (Auto) 10 % (0-9) Eosinophils (%) (Auto) 0 % (0-3) Basophils (%) (Auto) 0 % (0-3) Neutrophils # (Auto) 7.7 x10^3/uL (1.8-7.7) Lymphocytes # (Auto) 1.8 x10^3/uL (1.0-4.8) Monocytes # (Auto) 1.0 x10^3/uL (0.0-1.1) Eosinophils # (Auto) 0.0 x10^3/uL (0.0-0.7) Basophils # (Auto) 0.0 x10^3/uL (0.0-0.2) Sodium Level 140 mmol/L (136-145) Potassium Level 4.1 mmol/L (3.5-5.1) Chloride Level 103 mmol/L (98-107) Carbon Dioxide Level 31 mmol/L (21-32) Anion Gap 6 (6-14) Blood Urea Nitrogen 11 mg/dL (7-20) Creatinine 0.8 mg/dL (0.6-1.0) Estimated GFR (Cockcroft-Gault) 74.7 BUN/Creatinine Ratio 14 (6-20) Glucose Level 117 mg/dL (70-99) Calcium Level 8.4 mg/dL (8.5-10.1) Total Bilirubin 0.3 mg/dL (0.2-1.0) Aspartate Amino Transf (AST/SGOT) 52 U/L (15-37) Alanine Aminotransferase (ALT/SGPT) 91 U/L (14-59) Alkaline Phosphatase 95 U/L (46-116) Total Protein 6.5 g/dL (6.4-8.2) Albumin 2.6 g/dL (3.4-5.0) Albumin/Globulin Ratio 0.7 (1.0-1.7) Laboratory Tests Test 08/08/19 06:20 White Blood Count 10.6 x10^3/uL (4.0-11.0) Red Blood Count 4.77 x10^6/uL (3.50-5.40) Hemoglobin 13.0 g/dL (12.0-15.5) Hematocrit 39.6 % (36.0-47.0) Mean Corpuscular Volume 83 fL (79-100) Mean Corpuscular Hemoglobin 27 pg (25-35) Mean Corpuscular Hemoglobin Concent 33 g/dL (31-37) Red Cell Distribution Width 14.5 % (11.5-14.5) Platelet Count 286 x10^3/uL (140-400) Neutrophils (%) (Auto) 73 % (31-73) Lymphocytes (%) (Auto) 17 % (24-48) Monocytes (%) (Auto) 10 % (0-9) Eosinophils (%) (Auto) 0 % (0-3) Basophils (%) (Auto) 0 % (0-3) Neutrophils # (Auto) 7.7 x10^3/uL (1.8-7.7) Lymphocytes # (Auto) 1.8 x10^3/uL (1.0-4.8) Monocytes # (Auto) 1.0 x10^3/uL (0.0-1.1) Eosinophils # (Auto) 0.0 x10^3/uL (0.0-0.7) Basophils # (Auto) 0.0 x10^3/uL (0.0-0.2) Sodium Level 140 mmol/L (136-145) Potassium Level 4.1 mmol/L (3.5-5.1) Chloride Level 103 mmol/L (98-107) Carbon Dioxide Level 31 mmol/L (21-32) Anion Gap 6 (6-14) Blood Urea Nitrogen 11 mg/dL (7-20) Creatinine 0.8 mg/dL (0.6-1.0) Estimated GFR (Cockcroft-Gault) 74.7 BUN/Creatinine Ratio 14 (6-20) Glucose Level 117 mg/dL (70-99) Calcium Level 8.4 mg/dL (8.5-10.1) Total Bilirubin 0.3 mg/dL (0.2-1.0) Aspartate Amino Transf (AST/SGOT) 52 U/L (15-37) Alanine Aminotransferase (ALT/SGPT) 91 U/L (14-59) Alkaline Phosphatase 95 U/L (46-116) Total Protein 6.5 g/dL (6.4-8.2) Albumin 2.6 g/dL (3.4-5.0) Albumin/Globulin Ratio 0.7 (1.0-1.7) Allergies Allergies Coded Allergies Type Severity Reaction Last Updated Verified Penicillins Allergy Intermediate 06/09/17 Yes Disposition/Orders: D/C to Home Justicifation of Admission Dx: Justifications for Admission: Justification of Admission Dx: Yes HAYES ANN MD Aug 08, 2019 13:43
[2019-08-08] MEDS ORDERED: PANT40TA77 PO (13:45)
--- NOTE | 2019-08-08 13:46 | DISCH ---
DISCHARGE INSTRUCTIONS Condition on Discharge Condition on Discharge: Stable Activity After Discharge Activity Instructions for Disc: Activity as tolerated Bathing Instructions: No Tub Bath until see Lifting Instructions after Dis: No heavy lifting, No pulling or pushing Driving Instructions after Dis: Do not drive Diet after Discharge Diet after Discharge: Regular Checks after Discharge Checks after discharge: Check blood press - daily Contacting the DRSeda after DC Call your doctor for: If your condition worsens Treatment/Equipment after DC Adaptive Equipment Issued: None Warfarin Follow-Up Warfarin Follow UP: see surgery soon as directed HAYES NAN MD Aug 08, 2019 13:46
--- NOTE | 2019-08-08 14:06 | NUR ---
ALEX drain removed. Patient tolerated intervention well. Dressing in place.
[2019-08-08 14:42] VITALS: BP 138/58
--- NOTE | 2019-08-08 14:45 | NUR ---
Discharge Note: OLIVER SEVERINO Discharge instructions and discharge home medications reviewed with Patient and a copy given. All questions have been answered and understanding verbalized. The following instructions and handouts were given: Discharge instructions, new prescriptions, education and follow up recommendations. Discontinued lines and drains: ALEX drain and Peripheral IV discontinued intact. Patient discharged to Home or Self Care with Family Member via wheelchair off unit by RN.
--- NOTE | 2019-08-09 14:07 | PATHOLOGY ---
[facility] Accession Number: [id number] . 01 Material submitted: . gallbladder - GALLBLADDER . 02 Diagnosis: Gallbladder, laparoscopic cholecystectomy: - Cholelithiasis. - Cholesterolosis. - Acute hemorrhagic and chronic cholecystitis with increased eosinophils. LBQ 08/09/2019 1215 Local . 02 Comment: There is no evidence of malignancy. (JPM/db; 08/09/2019) . 02 Electronically signed: . Lucho Rebollar MD, Pathologist NPI- [id number] . 01 Gross description: . The specimen is received in formalin, labeled "Fred, Medina, gallbladder" and consists of an intact possibly necrotic kirk-reynoso gallbladder measuring 9.6 x 3.6 x 3.1 cm. Opening reveals thick brown bile/hemorrhagic mucus and multiple yellow granular calculi measuring 2.6 x 1.1 x 0.3 cm in aggregate. The mucosa is brown and granular with yellow streaking and a wall thickness of 0.2 cm. No gross lesions or lymph nodes are identified. Spinneret Cleaner sections are submitted in A1. ([facility]; 08/08/2019) JFQ/JFQ 08/08/2019 1930 Local . 02 Pathologist provided ICD-10: K80.12, K82.4 . 02 CPT . 145884 Specimen Comment: A courtesy copy of this report has been sent to [phone] Specimen Comment: [id number] Specimen Comment: Report sent to / DR CRISTOBAL Performed at: [facility] [address], [place], [place] [id number] MD Harish Escudero MD Phone: [phone] Performed at: 02 [facility] [address] [place], [place] [id number] MD Lucho Rebollar MD Phone: [phone]
[2019-09-18] MEDS ORDERED: LOSA100T14 PO (12:25)
[2019-09-18] MEDS ORDERED: FURO40TA4 PO (12:25)
[2019-09-18] MEDS ORDERED: ALBU2.5V8 IH (12:25)
== END 2019-08-08 14:51 | disposition home or self-care (01) | DRG 417 ==
LOC: ER 13:12 → 4 NORTH 15:10
PROVIDERS: ADMIT Internal Medicine; ATTEND Internal Medicine
PROC: 0FT44ZZ Resection of Gallbladder, Percutaneous Endoscopic Approach (ICD-10-PCS; principal; 2019-08-07 14:00)
DX: K80.20 Calculus of gallbladder without cholecystitis without obstruction (principal); R65.11 Systemic inflammatory response syndrome (SIRS) of non-infectious origin with acute organ dysfunction; I16.0 Hypertensive urgency; R74.0 Nonspecific elevation of levels of transaminase and lactic acid dehydrogenase [LDH]; R73.9 Hyperglycemia, unspecified; R19.7 Diarrhea, unspecified; F17.210 Nicotine dependence, cigarettes, uncomplicated; F43.9 Reaction to severe stress, unspecified; Z20.828 Contact with and (suspected) exposure to other viral communicable diseases; G43.909 Migraine, unspecified, not intractable, without status migrainosus; I10 Essential (primary) hypertension; Z80.9 Family history of malignant neoplasm, unspecified; Z82.49 Family history of ischemic heart disease and other diseases of the circulatory system; Z83.3 Family history of diabetes mellitus; Z88.0 Allergy status to penicillin; Z71.6 Tobacco abuse counseling; Z79.899 Other long term (current) drug therapy
CPT/HCPCS: 36415; 76705; 78227; 80053; 81001; 81025; 83036; 83690; 84484; 85025; 85610; 87086; 88304; 93005; 96361; 96374; 96375; 99285; A7015; A9537; C9113; J0330; J0360; J0690; J1100; J1650; J1885; J2250; J2270; J2405; J2704; J2710; J3010; J3490; J7030; J7120; G0378; U0003-CS

== ENCOUNTER → 2019-09-13 | Outpatient (CLI) | payer MEDICAID ==
[~2019-09-13] MED LIST changes: +PANT40TA77 PO
== END | disposition home or self-care (01) ==
LOC: LAB 12:47
PROVIDERS: ATTEND Internal Medicine Gastroenterology
DX: Z11.59 Encounter for screening for other viral diseases (principal)
CPT/HCPCS: U0003-CS

== ENCOUNTER → 2019-09-15 | Outpatient (CLI) | payer MEDICAID ==
[~2019-09-15] MED LIST changes: +PERFLUTREN PROTEIN-A MICROSPHR 0.22 MG/ML 3 ML VIAL. IV ONE
--- NOTE | 2019-09-15 12:37 | CARD ---
MR#: [id number] Date of Study: 09/15/2019 Ordering Physician: MASSIMO GALINDO, Referring Physician: MASSIMO GALINDO Tech: Maria Luz Luz NESSA APPROVED REPORT EXAM: Two-dimensional and M-mode echocardiogram with Doppler and color Doppler. Other Information Quality : Technically LimitedHR: 76bpm Rhythm : NSR INDICATION Dyspnea Fatigue Hypertension/HCVD Echo Enhancing Agent Indication: Endocardial border delineation Agent/Amount Used: Optison 2mL RISK FACTORS Hypertension Obesity 2D DIMENSIONS RVDd2.5 (2.9-3.5cm)Left Atrium(2D)3.5 (1.6-4.0cm) IVSd0.9 (0.7-1.1cm)Aortic Root(2D)3.0 (2.0-3.7cm) LVDd4.4 (3.9-5.9cm)LVOT Diameter2.2 (1.8-2.4cm) PWd1.1 (0.7-1.1cm)LVDs2.6 (2.5-4.0cm) FS (%) 41.6 %SV63.5 ml LVEF(%)72.7 (>50%) Aortic Valve AoV Peak Joe.182.2cm/sAoV VTI32.5cm AO Peak GR.13.3mmHgLVOT Peak Joe.114.3cm/s AO Mean GR.5mmHgAVA (VMAX)2.28cm2 Mitral Valve MV E Xljdlgsf68.3cm/sMV DECEL HUGW993vu MV A Bgfpbyfb20.9cm/sE/A Ratio1.2 MV A [id number] Pulmonary Valve PV Peak Pmopjcto737.8cm/s Pulmonary Vein S1 Cdtktbbs81.5cm/sD2 Ifferboy97.6cm/s PVa eyxxkenu978nlhh LEFT VENTRICLE The left ventricle is normal size. There is normal left ventricular wall thickness. The left ventricu lar systolic function is normal and the ejection fraction is within normal range. Estimated ejection fraction 60-65%. There is normal LV segmental wall motion. The left ventricular diastolic function an d filling is normal for age. RIGHT VENTRICLE The right ventricle is normal size. There is normal right ventricular wall thickness. The right ventr icular systolic function is normal. ATRIA The left atrium size is normal. The right atrium size is normal. The interatrial septum is intact wit h no evidence for an atrial septal defect or patent foramen ovale as noted on 2-D or Doppler imaging. AORTIC VALVE The aortic valve is grossly normal. Not well visualized. Doppler and Color Flow revealed no significa nt aortic regurgitation. There is no significant aortic valvular stenosis. MITRAL VALVE The mitral valve is normal in structure and function. There is no evidence of mitral valve prolapse. There is no mitral valve stenosis. Doppler and Color-flow revealed trace mitral regurgitation. TRICUSPID VALVE The tricuspid valve is normal in structure and function. Doppler and Color Flow revealed no tricuspid valve regurgitation noted. There is no tricuspid valve prolapse or vegetation. There is no tricuspid valve stenosis. PULMONIC VALVE The pulmonary valve is normal in structure and function. Doppler and Color Flow revealed no pulmonic valvular regurgitation. There is no pulmonic valvular stenosis. GREAT VESSELS The aortic root is normal in size. The ascending aorta is normal in size. The pulmonary artery is nor mal. The IVC is normal in size and collapses >50% with inspiration. PERICARDIAL EFFUSION There is no evidence of significant pericardial effusion. Critical Notification Critical Value: No <Conclusion> The left ventricular systolic function is normal and the ejection fraction is within normal range. E stimated ejection fraction 60-65%. There is normal LV segmental wall motion. Technically difficult study. Signed by : Anup Aldana, Electronically Approved : 09/15/2019 12:37:40
== END ==
LOC: ECHO 08:41
PROVIDERS: ATTEND Family Medicine
DX: M79.89 Other specified soft tissue disorders (principal); R06.01 Orthopnea
CPT/HCPCS: 93306; Q9956

== ENCOUNTER → 2019-09-18 | Day surgery (SDC) | payer MEDICAID ==
[~2019-09-18] MED LIST changes: +ALBU2.5V8 IH; +FURO40TA4 PO; +HYDROmorphone 2 MG/ML VIAL IV PRN; +IV RINGERS,LACTATED 1000ML 1,000 ML IV SCH; +LIDOCAINE 1% PF 2 ML VIAL. ID PRN; +LIDOCAINE 2% PF 5 ML VIAL. ONE; +LOSA100T14 PO; +MORPHINE SULFATE 2 MG/ML VIAL. IV PRN; +ONDANSETRON PF 4 MG/2 ML VIAL. IV PRN; -PERFLUTREN PROTEIN-A MICROSPHR 0.22 MG/ML 3 ML VIAL. IV ONE; +PROCHLORPERAZINE 10 MG/2 ML VIAL. IV PRN; +PROPOFOL 10 MG/ML (20ML) VIAL. IV ONE; +fentaNYL PF VIAL 100 MCG/2 ML VIAL IV PRN
--- NOTE | 2019-09-18 12:49 | PDOC1 ---
History and Physical Date of Admission Date of Admission DATE: 09/18/19 TIME: 12:44 Source Source: Chart review, Patient History of Present Illness History of Present Illness 54 y/o female with chronic heartburn; no prior EGD. On PPI. Variable stools with occasional blood. No prior colonoscopy. GIFH negative. Recent cholecystectomy for stones. No liver, pancreatic history. Past Medical History Cardiovascular: HTN CENTRAL NERVOUS SYSTEM: Migraine Past Surgical History Past Surgical History: Appendectomy, , Tonsillectomy Family History Family History: Coronary Artery Disease, Diabetes, Hypertension Social History ALCOHOL: none Drugs: None Current Medications Current Medications Current Medications Ondansetron HCl (Zofran) 4 mg PRN Q6HRS PRN IV NAUSEA/VOMITING; Start 09/18/19 at 07:00; Stop 09/19/19 at 06:59 Fentanyl Citrate (Fentanyl 2ml Vial) 25 mcg PRN Q5MIN PRN IV MILD PAIN 1-3; Start 09/18/19 at 07:00; Stop 09/19/19 at 06:59 Fentanyl Citrate (Fentanyl 2ml Vial) 50 mcg PRN Q5MIN PRN IV MODERATE TO SEVERE PAIN; Start 09/18/19 at 07:00; Stop 09/19/19 at 06:59 Morphine Sulfate (Morphine Sulfate) 1 mg PRN Q10MIN PRN IV SEVERE PAIN 7-10; Start 09/18/19 at 07:00; Stop 09/19/19 at 06:59 Ringer's Solution 1,000 ml @ 30 mls/hr Q24H IV Last administered on 09/18/19at 12:37; Start 09/18/19 at 07:00; Stop 09/18/19 at 18:59 Lidocaine HCl (Xylocaine-Mpf 1% 2ml Vial) 2 ml PRN 1X PRN ID PRIOR TO IV START; Start 09/18/19 at 07:00; Stop 09/19/19 at 06:59 Hydromorphone HCl (Dilaudid) 0.5 mg PRN Q10MIN PRN IV SEV PAIN, Second choice; Start 09/18/19 at 07:00; Stop 09/19/19 at 06:59 Prochlorperazine Edisylate (Compazine) 5 mg PACU PRN PRN IV NAUSEA, MRX1; Start 09/18/19 at 07:00; Stop 09/19/19 at 06:59 Active Scripts Active Protonix (Pantoprazole Sodium) 40 Mg Tablet.dr 40 Mg PO DAILYAC 30 Days Ujdmlm-Bjxtkddq-Tbjo 50-300-40 (Butalb/Acetaminophen/Caffeine) 1 Each Capsule 1 Each PO Q6HRS Reported Proair Hfa Inhaler (Albuterol Sulfate) 8.5 Gm Hfa.aer.ad 2 Puff IH PRN Q4-6HRS PRN 21 Days Furosemide 40 Mg Tablet 1 Tab PO DAILY Losartan Potassium 100 Mg Tablet 100 Mg PO DAILY Allergies Allergies: Coded Allergies: Penicillins (Verified Allergy, Intermediate, 06/09/17) ROS Review of System Otherwise non-contributory. Physical Exam General: Alert, Oriented X3, Cooperative, No acute distress Lungs: Clear to auscultation Heart: S1S2, RRR, no gallops, no murmurs Abdomen: Normal bowel sounds, Soft, No tenderness, No hepatosplenomegaly, No masses Rectal Exam: deferred Extremities: No cyanosis, No edema Skin: No significant lesion Neuro: Normal gait, Normal speech, Strength at 5/5 X4 ext, Normal tone, Sensation intact, Cranial nerves 3-12 NL Psych/Mental Status: Mental status NL, Mood NL Vitals Vitals Vital Signs Date Time Temp Pulse Resp B/P (MAP) Pulse Ox O2 Delivery O2 Flow Rate FiO2 09/18/19 12:29 97.1 72 20 94 97.1 VTE Prophylaxis Ordered VTE Prophylaxis Devices: No VTE Pharmacological Prophylaxi: No Assessment/Plan Assessment/Plan IMP: Chronic heartburn; r/o Benites's. Screen for colon cancer. PLAN: Colonoscopy and EGD. OMAR KETIH MD Sep 18, 2019 12:49
--- NOTE | 2019-09-18 13:25 | PDOC4 ---
PROCEDURE Procedure Colonoscopy/EGD with biopsies Indications: Chronic heartburn/screen for colon cancer. Meds: per anesthesia Findings: MYRTLE--normal --'Scope advanced to cecum. Mucosa normal. Prep fair. Scattererd diverticula in sigmoid. Small internal hemorrhoids on retroflex, otherwise normal. E--Healed erosive esophagitis distally. One tongue of salmon-colored mucosa left wall 38-39 cm. Biopsied this. G--Mild diffuse antral erythema, biopsied. D--Normal to second portion. Freddy. well. IMP: Diverticulitis Hemorrhoids. GERD Possible Benites's. Antral erythema, non-specific. REC: Continue current meds, diet. Await pathology. F/u with me in 2 weeks. Repeat colonoscopy 10 years. Repeat EGD if Barretts on biopsies; timing pending path. OMAR KEITH MD Sep 18, 2019 13:25
[2019-09-18 13:49] VITALS: BP 163/69
--- NOTE | 2019-09-19 18:06 | PATHOLOGY ---
[facility] Accession Number: [id number] . 01 Material submitted: . PART A: stomach - BX ANTRUM PART B: esophagus - BX DISTAL ESOPHAGUS. Modifiers: distal . 01 Clinical history: . GERD . 02 Diagnosis: A. Gastric biopsy, antrum: - Chronic gastritis, mild. . B. 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 LBQ 09/19/2019 0946 Local . 02 Comment: Sections of the gastric antral biopsy show congestion and mild chronic inflammation. A properly controlled immunoperoxidase stain for Helicobacter is negative for Helicobacter organisms. . Sections of the distal esophageal biopsy reveal segments of columnar-lined mucosa showing chronic inflammation and focal intestinal metaplasia with goblet cells consistent with Benites's change. There is a small squamous island within one of the biopsy segments. There is no dysplasia or evidence of malignancy. (JPM/db; 09/19/2019) . Special stain performed: Immunoperoxidase stain for Helicobacter on A1 . 02 Electronically signed: . Lucho Rebollar MD, Pathologist NPI- [id number] . 01 Gross description: . A. The specimen is received in formalin labeled "Medina Ibarra, BX of antrum" and consists of a fragment of reynoso tissue measuring 1.1 x 0.2 x 0.2 cm which is entirely submitted in A1. . B. The specimen is received in formalin labeled "Fred, Medina, BX distal esophagus" and consists of multiple fragments of pink-reynoso tissue measuring 0.7 x 0.2 x 0.1 cm in aggregate which are entirely submitted in B1. (JMAletha; 09/18/2019) JFQ/JFQ 09/18/2019 [facility]9 Local . 02 Pathologist provided ICD-10: K29.50, K20.9 . 02 CPT . 486177, 099075, G84992 Specimen Comment: A courtesy copy of this report has been sent to [phone] Specimen Comment: [id number] Specimen Comment: Report sent to / DR GALINDO Performed at: [address], [place] [id number] MD Harish Escudero MD Phone: [phone] Performed at: 02 [facility] [address] [place], [place] [id number] MD Lucho Rebollar MD Phone: [phone]
== END ==
LOC: SURG 12:03
PROVIDERS: ATTEND Internal Medicine Gastroenterology
DX: Z12.11 Encounter for screening for malignant neoplasm of colon (principal); K22.70 Barrett's esophagus without dysplasia; K21.0 Gastro-esophageal reflux disease with esophagitis; K29.50 Unspecified chronic gastritis without bleeding; K57.30 Diverticulosis of large intestine without perforation or abscess without bleeding; K64.0 First degree hemorrhoids; I10 Essential (primary) hypertension; G43.909 Migraine, unspecified, not intractable, without status migrainosus; F17.200 Nicotine dependence, unspecified, uncomplicated; Z98.890 Other specified postprocedural states
CPT/HCPCS: 43239; 45378; J2704

== ENCOUNTER → 2019-11-06 | Outpatient (CLI) | payer MEDICAID ==
[2019-09-18 13:49] VITALS: BP 163/69
[~2019-11-06] MED LIST changes: -HYDROmorphone 2 MG/ML VIAL IV PRN; -IV RINGERS,LACTATED 1000ML 1,000 ML IV SCH; -LIDOCAINE 1% PF 2 ML VIAL. ID PRN; -LIDOCAINE 2% PF 5 ML VIAL. ONE; -MORPHINE SULFATE 2 MG/ML VIAL. IV PRN; -ONDANSETRON PF 4 MG/2 ML VIAL. IV PRN; -PROCHLORPERAZINE 10 MG/2 ML VIAL. IV PRN; -PROPOFOL 10 MG/ML (20ML) VIAL. IV ONE; -fentaNYL PF VIAL 100 MCG/2 ML VIAL IV PRN
--- NOTE | 2019-11-06 16:15 | KCIC ---
SHOULDER 2+V RIGHT DATE: 11/06/2019 12:00 AM INDICATION: CHRONIC RIGHT SHOULDER PAIN COMPARISON: None. FINDINGS: Bones: There is no evidence of acute fracture or dislocation. Joints: Severe degenerative changes of the acromioclavicular joint. Mild degenerative changes of the glenohumeral joint. The acromiohumeral distance is not narrowed. Miscellaneous: No abnormal soft tissue calcifications in the shoulder. IMPRESSION: Severe AC joint degenerative changes. Mild glenohumeral joint degenerative changes. Electronically signed by: David Friedman MD (11/06/2019 4:13 PM) [id number]
--- NOTE | 2019-11-06 16:18 | KCIC ---
KNEE RIGHT 3V DATE: 11/06/2019 12:00 AM INDICATION: CHRONIC RIGHT KNEE PAIN, INCREASING POST INJURY 6-7 DAYS AGO COMPARISON: None. FINDINGS: Bones: There is no evidence of acute fracture or dislocation. Joints: Moderate to severe medial compartment degenerative changes, mild to moderate lateral and patellofemoral compartment degenerative changes. There is no joint effusion. Miscellaneous: None. IMPRESSION: 1. No acute osseous abnormality. 2. Tricompartmental degenerative changes, worst and moderate to severe in the medial compartment. Electronically signed by: David Friedman MD (11/06/2019 4:14 PM) [id number]
== END | disposition home or self-care (01) ==
LOC: KCIC 14:09
PROVIDERS: ATTEND Family Medicine
DX: M17.11 Unilateral primary osteoarthritis, right knee (principal); M19.011 Primary osteoarthritis, right shoulder
CPT/HCPCS: 73030; 73562

== ENCOUNTER → 2019-12-04 | Outpatient (CLI) | payer MEDICAID ==
[2019-09-18 13:49] VITALS: BP 163/69
[~2019-12-04] MED LIST changes: +MAG HYDROX/ALUMINUM HYD/SIMETH 30 ML ORAL.SUSP PO ONE; +ZOLPIDEM 5 MG TABLET. PO ONE
--- NOTE | 2019-12-05 22:09 | SLEEP ---
DATE OF STUDY: 12/04/2019 SLEEP STUDY REFERRING PHYSICIAN: Massimo Nathan MD HISTORY OF PRESENT ILLNESS: The patient is a 54-year-old who weighs 300 pounds with a BMI of 48. The patient's Davenport score was 10. The patient underwent diagnostic sleep study performed at [facility]. During the night study, the patient spent 426 minutes in bed and slept for 341 minutes with a sleep efficiency of 80%. Sleep latency was 74 minutes with a REM latency of 79 minutes. Sleep architecture showed increased stage 1 and stage 2 sleep, normal slow wave and slightly reduced REM sleep. During the night study, the patient had 1 obstructive apnea, 2 mixed apneas, 11 central apneas and 57 hypopneas. The patient's AHI was 13 per hour, supine AHI 12 per hour and a REM AHI of 61 per hour. EKG monitoring revealed normal sinus rhythm, average heart rate 74 beats per minute, no sustained arrhythmias observed. No significant PLM seen. Nocturnal oximetry study revealed a mean oxygen saturation of 92% with lowest of 74%. A 66% of time oxygen saturation remained between 80% and 89%. The patient did meet the split night criteria for CPAP initiation, but it was late in the night, so CPAP could not be initiated. IMPRESSION: 1. Mild obstructive sleep apnea with worsening during REM sleep. Total AHI of 13 per hour with a REM AHI of 61 per hour. 2. Nocturnal hypoxia secondary to obstructive sleep apnea. 3. No clinically significant periodic limb movements. RECOMMENDATIONS: 1. The patient would benefit from return to the sleep lab for CPAP titration study. 2. Once the patient is optimally treated with CPAP, then follow up in 4-6 weeks to assess compliance and to document clinical improvement. 3. Weight loss is strongly advised. 4. Avoid CLIMBING GUIDE depressants. 5. Cautioned regarding driving until symptoms of sleep apnea resolve with the use of CPAP. NANCY FRAIRE MD DR: LEONCIO/susan JOB#: [id number] / [id number] MASSIMO Song MD
== END | disposition home or self-care (01) ==
LOC: SLPLAB 18:54
PROVIDERS: ATTEND Internal Medicine Critical Care Medicine
DX: G47.33 Obstructive sleep apnea (adult) (pediatric) (principal); G47.34 Idiopathic sleep related nonobstructive alveolar hypoventilation
CPT/HCPCS: 95810

== ENCOUNTER → 2019-12-20 | Outpatient (CLI) | payer MEDICAID ==
[2019-09-18 13:49] VITALS: BP 163/69
[~2019-12-20] MED LIST changes: -MAG HYDROX/ALUMINUM HYD/SIMETH 30 ML ORAL.SUSP PO ONE; -ZOLPIDEM 5 MG TABLET. PO ONE
--- NOTE | 2019-12-21 12:37 | SLEEP ---
DATE OF STUDY: 12/20/2019 SLEEP STUDY ATTENDING PHYSICIAN: Massimo Nathan MD The patient is a 54-year-old who weighs 300 pounds with a BMI of 48. The patient had a previous sleep study, which showed DUNCAN with an AHI of 13 per hour with a REM AHI of 61 per hour. The patient was referred for in-lab CPAP titration study. During the night study, the patient spent 441 minutes in bed and slept for 353 minutes with a sleep efficiency of 80%. Sleep latency was 50 minutes with a REM latency of 46 minutes. Sleep architecture showed increased stage 1 and stage 2 sleep, normal slow wave and normal REM sleep. EKG monitoring revealed an average heart rate of 75 beats per minute, no sustained arrhythmias observed. No PLMs observed. The patient was started on CPAP at a pressure of 5 cm water and titrated up to 13 cm water. At the final pressure, the patient slept for 40 minutes. The patient had supine as well as REM sleep. The patient's AHI was reduced to 0 per hour and oxygen saturation remained above 90%. IMPRESSION: 1. Sleep apnea diagnosed by previous sleep study. It was mild with worsening during rapid eye movement sleep. 2. No clinically significant nocturnal hypoxia while on final CPAP pressure. 3. No significant periodic limb movements. RECOMMENDATIONS: 1. CPAP at 13 cm water, completely eliminated the patient's sleep apnea and should be used on a nightly basis. 2. Follow up in 4-6 weeks to assess compliance with CPAP and to document clinical improvement. 3. Weight loss is strongly advised. 4. Avoid PIZZA HUT ASSISTANT depressants. 5. Cautioned regarding driving until symptoms of sleep apnea resolve with the use of CPAP. NANCY FRAIRE MD DR: LEONCIO/susan JOB#: [id number] / [id number] MASSIMO Song MD
== END ==
LOC: RT 18:58
PROVIDERS: ATTEND Internal Medicine Critical Care Medicine
DX: G47.33 Obstructive sleep apnea (adult) (pediatric) (principal)
CPT/HCPCS: 95811

== ENCOUNTER 2020-07-22 11:41 | Emergency (ER) | payer MEDICAID ==
[~2020-07-22] VITALS: Ht 170.2 cm; Wt 154.0 kg
[2020-07-22 12:21] VITALS: BP 132/99
[2020-07-22] MEDS ORDERED: HYDR-2761 PO (14:23)
[2020-07-22] MEDS ORDERED: CLIN150C15 PO (14:23)
--- NOTE | 2020-07-22 14:24 | PHYS DOC ---
Past Medical History Past Medical History: Diabetes-Type II, Hypertension Past Surgical History: Appendectomy, Additional Past Surgical Histo: gall bladder Smoking Status: Former Smoker Additional Information: quit 2019 Alcohol Use: None Drug Use: None General Adult EDM: Chief Complaint: INSECT BITE HPI: HPI: Patient is a 55 year old female with history of diabetes type 2, hypertension, who presents to the ED today with an abscess on the left abdominal wall that began last week on Wednesday. Patient states she has been using pred on the abscess and it is currently draining. Denies any fever. Review of Systems: Review of Systems: Constitutional: Denies fever or chills. [] Musculoskeletal: Denies back pain or joint pain. [] Integument: Reports abdominal wall abscess Neurologic: Denies headache, focal weakness or sensory changes. [] Psychiatric: Denies depression or anxiety. [] Heart Score: C/O Chest Pain: N/A Risk Factors: Risk Factors: DM, Current or recent (<one month) smoker, HTN, HLP, family history of CAD, obesity. Risk Scores: Score 0 - 3: 2.5% MACE over next 6 weeks - Discharge Home Score 4 - 6: 20.3% MACE over next 6 weeks - Admit for Clinical Observation Score 7 - 10: 72.7% MACE over next 6 weeks - Early Invasive Strategies Allergies: Allergies: Allergies Coded Allergies Type Severity Reaction Last Updated Verified Penicillins Allergy Intermediate 09/18/19 Yes Physical Exam: PE: Constitutional: Well developed, well nourished, no acute distress, non-toxic appearance. [] Abdomen: Bowel sounds normal, soft, no tenderness, no masses, no pulsatile masses. [] Skin: Left abdominal wall with an open wound draining yellow purulent material with surrounding moderate cellulitis. The abscess was drained in the ED by me and nonstick dressing applied. Moderate amount of yellow purulent material was expressed. Back: No tenderness, no CVA tenderness. [] Extremities: No tenderness, no cyanosis, no clubbing, ROM intact, no edema. [] Neurologic: Alert and oriented X 3, normal motor function, normal sensory function, no focal deficits noted. [] Psychologic: Affect normal, judgement normal, mood normal. [] Current Patient Data: Vital Signs: Vital Signs Date Time Temp Pulse Resp B/P (MAP) Pulse Ox O2 Delivery O2 Flow Rate FiO2 5/17/21 12:21 97.6 95 16 132/99 (110) 95 Room Air 97.6 EKG: EKG: [] Radiology/Procedures: Radiology/Procedures: [] Course & Med Decision Making: Course & Med Decision Making Pertinent Labs and Imaging studies reviewed. (See chart for details) This is a 55-year-old female patient presenting to the ED today with an abdominal abscess with cellulitis that was drained by me in the ED. Tetanus is up-to-date. Discharged on clindamycin. Wound care instructions and return precautions provided Dragon Disclaimer: Dragon Disclaimer: This electronic medical record was generated, in whole or in part, using a voice recognition dictation system. Departure Departure Impression: Primary Impression: Cutaneous abscess of abdominal wall Additional Impression: Abdominal wall cellulitis Disposition: HOME / SELF CARE / HOMELESS Condition: STABLE Referrals: MASSIMO GALINDO MD (PCP) Follow-up next week Patient Instructions: Abscess, Care After Additional Instructions: You have an abscess on your abdomen that was drained in the emergency room, take the prescribed antibiotics to completion. Follow-up with your doctor in 1 to 2 weeks. Keep the area clean and dry, continue applying warm compresses to the area once or twice a day. Scripts Hydrocodone Bit/Acetaminophen (HYDROCODONE-APAP 5-325 ) 1 Tab Tablet 1 TAB PO PRN Q6HRS PRN for PAIN, #14 TAB 0 Refills Prov: ANDIE CORONA APRN 07/22/20 Clindamycin Hcl (CLINDAMYCIN HCL) 150 Mg Capsule 3 CAP PO TID, #90 CAP Prov: ANDIE CORONA APRN 07/22/20 ANDIE CORONA APRN July 22, 2020 14:23
== END 2020-07-22 15:28 | disposition home or self-care (01) ==
LOC: ER 11:41
DX: L02.211 Cutaneous abscess of abdominal wall (principal); E11.9 Type 2 diabetes mellitus without complications; I10 Essential (primary) hypertension; Z87.891 Personal history of nicotine dependence; Z88.0 Allergy status to penicillin
CPT/HCPCS: 10060; 99283

== ENCOUNTER → 2020-08-27 | Outpatient (CLI) | payer MEDICAID ==
[~2020-08-27] MED LIST changes: +CLIN150C15 PO; +HYDR-2761 PO
--- NOTE | 2020-08-27 13:57 | KCIC ---
Indications: Patient fell on August 26, 2021. Right shoulder and right elbow pain. 3 view right elbow study: No joint effusion is seen. No acute fracture or dislocation or lytic proces s is evident. 2 view study of the right clavicle: No acute fracture or lytic process is seen. Two-view right shoulder study: No acute fracture or dislocation or lytic process is seen. No AC joint separation is seen. There is severe degenerative osteoarthritis and prominent spurring of the right AC joint. There is spurring of the inferior edge of the acromial process. These findings may impinge the acromial humeral space resulting in rotator cuff disease/tear. Bone island of the inferior aspect of the glenoid is seen. IMPRESSION: No acute osseous abnormality. 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 Electronically signed by: Richie Kat MD (08/27/2020 1:54 PM) [id number]
== END ==
LOC: KCIC 13:04
PROVIDERS: ATTEND Family Medicine
DX: M19.011 Primary osteoarthritis, right shoulder (principal); M25.521 Pain in right elbow; M25.619 Stiffness of unspecified shoulder, not elsewhere classified
CPT/HCPCS: 73000; 73030; 73080